=== PATIENT | female | born 1955 | race Caucasian/White ===

== ENCOUNTER 2016-08-25 18:32 | Inpatient (IN) | payer OTHER ==
[~2016-08-25] VITALS: Ht 160 cm; Wt 72.9 kg
--- NOTE | ~2016-08-25 | HP ---
PATIENT'S NAME: BECCA HOOD [facility] AGE: 61 Y [address] ROOM: [place] [address] LOCATION: GICU ADMIT DATE: 08/25/2016 History & Physical DISCHARGE DATE: FAMILY PHYSICIAN: PHYSICIAN, UNKNOWN ATTENDING PHYSICIAN: YO YAP DATE OF SERVICE: CHIEF COMPLAINT: Altered mental status. HISTORY OF PRESENT ILLNESS: A 61-year-old lady with a past medical history of hypertension and recent heavy alcohol use in the past 4 to 5 weeks observed by the family, was found to be more confused and it appeared that she had a fall which nobody witnessed, and was brought to the Emergency Department at the [facility] where a CAT scan was done, which did show some subarachnoid hemorrhage versus contusion. She was transferred here for further medical care. On my encounter, she is very drowsy, but she is alert to herself. She is following commands, opening eyes, and doing purposeful movements. On limited review of systems, the patient herself was not positive for any chest pain or shortness of breath. Recently, the patient was taken to the hospital for her excessive alcohol use, and she was prescribed a dose of Librium, which she was taking at home. Daughter denied that she did not complain of any chest pain, any shortness of breath, any headache, any fever, or any chills, but did endorse that she was having diarrhea. REVIEW OF SYSTEMS: All the systems were reviewed and were negative except what is mentioned in the HPI. SOCIAL HISTORY: The patient is a life-long smoker with heavy alcohol use. She lives by herself. Daughter moved in with her over the course of last 3 weeks when she was excessively drinking, and then later, she stopped drinking and was prescribed Librium. ALLERGIES: NO KNOWN DRUG ALLERGIES. PAST MEDICAL HISTORY: 1. Sick sinus syndrome, status post pacemaker, [place] [employer], which is MR compatible per daughter who also works for [employer]. 2. Hypertension. 3. Alcohol abuse. PATIENT'S NAME: BECCA HOOD [facility] AGE: 61 Y [address] ROOM: [place] [address] LOCATION: GICU ADMIT DATE: 08/25/2016 History & Physical DISCHARGE DATE: FAMILY PHYSICIAN: PHYSICIAN, UNKNOWN ATTENDING PHYSICIAN: YO YAP MEDICATIONS: Please see MAR. FAMILY HISTORY: Family history is negative for high blood pressure, diabetes, or strokes. PHYSICAL EXAMINATION: VITAL SIGNS: Blood pressure on arrival after putting the arterial line was 114/70, heart rate was 62, respiratory rate was 20, and afebrile. GENERAL: No acute distress. Alert and oriented x1. NEUROLOGICAL: All extremities strength was 5/5. GCS is 14/15. Purposeful movements were noted. CARDIOVASCULAR: S1 and S2. No murmurs, gallops, or rubs. Pacemaker was present. LUNGS: Clear to auscultation bilaterally. ABDOMEN: Soft, nontender, and nondistended. Bowel sounds were present. EXTREMITIES: No clubbing, cyanosis, or edema. PSYCHIATRIC: Cannot be evaluated at this point. MUSCULOSKELETAL: Abrasion and laceration were noted on the left elbow. No muscle tenderness was noted. ENDOCRINE: No lymphadenopathy or signs of cushingoid was noted. LABORATORY WORK: On arrival to our hospital, sodium of 139, potassium of 3.4, chloride of 103, anion gap of 18, calcium of 8.0, BUN of 16, creatinine of 1.0, alkaline phosphatase of 130, AST of 39, ALT of 55, and bilirubin of 1.1. Sodium was 129 on outside hospital, and the potassium was 3.4. Complete blood count was unremarkable. Lactate was 1.4. DIAGNOSTIC STUDIES: CAT scan at the outside facility showed left-sided temporal contusions versus small subarachnoid hemorrhage. ASSESSMENT: 1. Intracranial hemorrhage versus stroke. 2. Alcohol abuse and withdrawal. 3. Hypertension. 4. Hyponatremia. 5. Hypokalemia. 6. Elevated liver enzymes. 7. Acute kidney injury secondary to dehydration. 8. Recurrent falls. PLAN: PATIENT'S NAME: BECCA HOOD [facility] AGE: 61 Y [address] ROOM: [place] [address] LOCATION: [facility] ADMIT DATE: 08/25/2016 History & Physical DISCHARGE DATE: FAMILY PHYSICIAN: PHYSICIAN, UNKNOWN ATTENDING PHYSICIAN: YO YAP Admit this patient to the ICU. We did put an arterial line in this patient to get accurate blood pressures. Neurosurgical consultation has been obtained. She is getting aggressive volume resuscitation. She corrected too fast for her sodium from 129 to 139. We are going to change the fluids to D5, and start her on desmopressin as well. We are going to continue to monitor labs. At this point, Neurosurgery have recommended an MRI of the brain as well as a CT angiogram of the head and neck. They also recommended a Neurology consultation, which had been obtained. We are going to observe this lady overnight. SCDs for DVT prophylaxis. Potassium is getting replaced. MATHEW which was present at the outside hospital has resolved now after volume hydration. We are going to treat her with thiamine 100 mg IV b.i.d. as she is going to get D5 to prevent any encephalopathy. BMP q.4 hours. Clostridium difficile assay. The patient is going to be n.p.o. until more alert. Seizure precautions. We will use alcohol withdrawal protocol if the patient becomes more delirious overnight. Further management will depend on her progress in the hospital. MD KOJO LAYNE/bibiana /[id number] D: 113 T: 845 HISTORY & PHYSICAL
--- NOTE | ~2016-08-25 | CON ---
PATIENT'S NAME: BECCA HOOD [facility] AGE: 61 Y [address] ROOM: [facility] [address] [place], [place] [address] [facility]ATION[facility] ADMIT DATE: 08/25/2016 Consultation DISCHARGE DATE: FAMILY PHYSICIAN: ZHANG MAGANA ATTENDING PHYSICIAN: YO YAP DATE OF CONSULTATION: 08/26/2016 REFERRING PHYSICIAN: LAUREN LYNN MD I was asked to see this patient in Telemedicine consultation. Consultation was performed with the assistance of nurse practitioner, Halima De Leon, on 08/26/2016. Golden portions of the history and exam were repeated. I agree with the discussed assessment and plan of care. 35 minutes spent in patient care time, reviewing records, discussing the case with nurse practitioner, and meeting with family. Marti Pruitt MD Neurology Telespecialist Services MARTI PRUITT MD MNZ/modl /[id number] d: t: 08/31/16 1133, CONSULTATION REPORT
--- NOTE | ~2016-08-25 | NDGEN ---
PATIENT'S NAME: BECCA HOOD [facility] AGE: 61 Y [address] ROOM: [address] [address] LOCATION: [facility] ADMIT DATE: 08/25/2016 Neurodiagnostics DISCHARGE DATE: FAMILY PHYSICIAN: PHYSICIAN, UNKNOWN ATTENDING PHYSICIAN: YO YAP PROCEDURE: ELECTROENCEPHALOGRAM DATE OF PROCEDURE: 08/26/2016 TEST: TECH: CLINICAL DIAGNOSIS: DURATION OF EE minutes. REASON FOR EEG: Possible seizures/mental status changes. CLINICAL HISTORY: The patient is a 61-year-old female, who has history of hypertension, recent heavy alcohol use, and was found to be confused and she appears to have had a fall which nobody witnessed. EEG FINDINGS: In fact, there was very little interpretable data during this recording. In places where cortical rhythms were appreciated with continuous slow activity in between 4-6Hz was seen. CLASSIFICATION: Technically difficult, awake 10/20 scalp electrodes. IMPRESSION: This EEG is extremely limited in its interpretation due to excessive movement/EMG artifact throughout the recording. In places where cortical rhythms were appreciated, no epileptiform discharges or EEG seizures were seen. MD ZAK KU/bibiana /[id number] dtt: 09/03/16 0635 RAMON RAM MOHAN R. dtd: 08/26/16 2333
--- NOTE | ~2016-08-25 | CON ---
PATIENT'S NAME: BECCA HOOD [facility] AGE: 61 Y [address] ROOM: [place] [address] LOCATION: GPCU ADMIT DATE: 08/25/2016 Consultation DISCHARGE DATE: FAMILY PHYSICIAN: ZHANG MAGANA ATTENDING PHYSICIAN: YO YAP REFERRING PHYSICIAN: LAUREN LYNN MD REFERRING PROVIDER: Hospitalist Service. REASON FOR REFERRAL: Hypoxemia. HISTORY OF PRESENT ILLNESS: The patient is a 61-year-old woman initially admitted after a fall. She is a heavy alcohol user and apparently fell as a result of sedation from a benzodiazepine that she was prescribed. She had a small subdural hematoma and has been observed in this hospital since the . Her mental status has waxed and waned, but she has never been fully alert and interactive. She has been noted to have increasing O2 requirements today. She had received fairly large volume of fluids in the preceding days for the current situation. Chest x-ray and CT scan demonstrated bilateral patchy infiltrates in an alveolar pattern. These are consistent with either noncardiogenic pulmonary edema or patchy bilateral pneumonia. PAST MEDICAL HISTORY: Please refer to the admission history and physical exam. FAMILY HISTORY: Unobtainable. SOCIAL HISTORY: Unobtainable. REVIEW OF SYSTEMS: Unobtainable. PHYSICAL EXAMINATION: GENERAL: She is sleeping but arousable. She is confused and lethargic. ENT: Otherwise, unremarkable. CHEST: Normal contours. Mild tachypnea. LUNGS: Diminished breath sounds but relatively clear. HEART: Regular. ABDOMEN: Soft, nontender. Minimal bowel sounds. EXTREMITIES: Mild edema. PATIENT'S NAME: BECCA HOOD [facility] AGE: 61 Y [address] ROOM: [place] [address] LOCATION: GPCU ADMIT DATE: 08/25/2016 Consultation DISCHARGE DATE: FAMILY PHYSICIAN: ZHANG MAGANA ATTENDING PHYSICIAN: YO YAP ASSESSMENT: Increasing hypoxemia. CT scan suggest either noncardiogenic pulmonary edema or patchy bilateral pneumonia. PLAN: Ventilates fine for now. If she begins to retain CO2 or struggle more or develops worsening refractory hypoxemia, we will need to intubate. MD Olga DONIS /[id number] d: 08/30/16 2330 t: 09/05/16 1303, CONSULTATION REPORT
--- NOTE | ~2016-08-25 | ECHO ---
Transthoracic Echocardiography Report (TTE) Demographics Patient Name BECCA HOOD Date of Study 08/26/2016 Patient Number [id number] Visit Number [id number] Date of 1955 Room Number G6203 Accession Number [id number] Gender Female Age 61 year(s) Referring Second Rigger Sheela Plascencia RVT, Physician JUSTICE Physician Interpreting Hany Riley Digital Recruiter Physician Supervising Ordering Physician Colton Orellana MD/REGLAP Nurse Stress Quality Assurance Calibrator Conclusions Contractility Score Summary Normal Left Ventricular contractility was noted. Summary Normal LV/RV size and systolic function. The estimated left ventricular ejection fraction is 60-65%. Mild concentric left ventricular hypertrophy. Diastolic assessment reveals Grade I diastolic dysfunction. LA is mildly dilated. There is severe aortic stenosis by the Continuity Equation. The peak velocity is 4.02 m/s and the mean gradient is 43 mmHg. The ascending aorta appears mildly dilated. The maximum diameter measures 3.6 cm. Procedure Type of Study TTE procedure:2D Echocardiogram. Procedure Date Date: 08/26/2016 Start: 07:56 AM Study Location: Inpatient Portable Technical Quality: Adequate visualization Indications:CVA. Appropriate Use Criteria: 8 Patient Status: Routine Rhythm: Paced HR: 79 bpm BP: 105/59 mmHg M-Mode/2D Measurements LV Diastolic Dimension: 4.39 cm LV Systolic Dimension: 2.77 cm LV Septum Diastolic: 1.37 cm LV PW Diastolic: 1.29 cm AO Root Dimension: 2.7 cm Cardiac Output: 9.98 l/min AV Cusp Separation: 0.9 cm RV Diastolic Dimension: 3.32 cm LA volume: 30 ml LVOT: 1.9 cm RV Base: 3.26 cm LVOT VTI: 44.6 cm RV Mid: 3.07 cm LV Stroke volume: 126.39 ml TAPSE: 1.56 cm TDI-S': 13.3 cm/s Doppler Measurements AV Peak Velocity: 4.02 m/s MV Peak E-Wave: 0.56 m/s AV Peak Gradient: 64.64 mmHg MV Peak A-Wave: 0.83 m/s AV Mean Gradient: 43 mmHg MV E/A Ratio: 0.68 LVOT Peak Velocity: 1.02 m/s MV P1/2t: 71 msec TR Gradient:25.4 mmHg PV Peak Velocity: 1.03 m/s Estimated RAP:5 mmHg PV Peak Gradient: 4.24 mmHg Estimated RVSP: 30 mmHg Estimated PASP: 30.4 mmHg E' Septal Velocity: 0.05 m/s A' Lateral Velocity: 0.1 m/s E' Lateral Velocity: 0.09 m/s Findings Left Ventricle Mild concentric left ventricular hypertrophy. Diastolic assessment reveals Grade I diastolic dysfunction. Right Ventricle Normal right ventricle structure and function. Device lead noted in the right ventricle. Left Atrium LA is mildly dilated. There is no evidence of patent foramen ovale or atrial septal defect by color Doppler. Right Atrium Normal right atrial size. Device lead seen in the right atrium. Mitral Valve Mild mitral annular calcification. Aortic Valve There is severe aortic stenosis by the Continuity Equation. The peak velocity is 4.02 m/s and the mean gradient is 43 mmHg. Tricuspid Valve Normal tricuspid valve structure and function. Trivial tricuspid regurgitation by color Doppler. Pulmonic Valve Normal pulmonic valve structure and function. Pericardial Effusion No evidence of pericardial effusion. Miscellaneous The ascending aorta appears mildly dilated. The maximum diameter measures 3.6 cm. Suboptimal subcostal window to evaluate the IVC and interatrial septum. Pleural Effusion No evidence of pleural effusion. Contractility Score LV regional wall motion:(0-Non visualized 1-Normal 2-Hypokinesis 3-Akinesis 4-Dyskinesis 5-Aneurysm) Signature dtt: JUAN AREVALO dtd: 08/26/16 0756 Physician Self Edit
--- NOTE | ~2016-08-25 | CON ---
PATIENT'S NAME: BECCA HOOD [facility] AGE: 61 Y [address] ROOM: [place] [address] LOCATION: GICU ADMIT DATE: 08/25/2016 Consultation DISCHARGE DATE: FAMILY PHYSICIAN: PHYSICIAN, UNKNOWN ATTENDING PHYSICIAN: YO YAP DATE OF CONSULTATION: 08/26/2016 REFERRING PHYSICIAN: LAUREN LYNN MD TIME OF SERVICE: 1:05 p.m. CHIEF COMPLAINT: Altered mental status. HISTORY OF PRESENT ILLNESS: This is a 61-year-old female with a past medical history of hypertension and recent alcohol use in the past four to five weeks as observed by the family. She was at home detoxing using Librium, and was found to be more confused. Family was curious that she had a fall. She was brought to the Emergency Room at [place], where they did a CAT scan, which did show some subarachnoid hemorrhage versus contusion. She was transferred to [facility] for definitive care. She is lying in the bed, lethargic, and her daughter is present also. Further workup has included an MRI. Of note, her sodium was supposedly 129 at [place], but eight hours later, it was 139 here. One must question that initial sodium reading. Her daughter states she has not really complained during the detox, and not complained of any chest pain, shortness of breath, headache, fever, or chills, but did state she was having diarrhea. REVIEW OF SYSTEMS: The review of systems were completed as much as we could due to the patient's somnolent status. SOCIAL HISTORY: The patient is a life-long smoker and a heavy alcohol abuser. She does live by herself. Her daughter moved in with her over the course of the last 3 weeks when she was drinking heavily, and then also to help with the stop drinking and the Librium prescription. ALLERGIES: SHE HAS NO KNOWN DRUG ALLERGIES. PAST MEDICAL HISTORY: 1. Sick sinus syndrome, status post pacemaker. She does have a [place] PATIENT'S NAME: BECCA HOOD [facility] AGE: 61 Y [address] ROOM: [place] [address] LOCATION: GICU ADMIT DATE: 08/25/2016 Consultation DISCHARGE DATE: FAMILY PHYSICIAN: PHYSICIAN, UNKNOWN ATTENDING PHYSICIAN: YO YAP [employer] MR-compatible pacemaker. 2. Hypertension. 3. Alcohol abuse. 4. Tobaccoism. MEDICATIONS: Please see the chart for full dose and timing of medications. FAMILY HISTORY: Negative for hypertension, diabetes, or strokes. PHYSICAL EXAMINATION: GENERAL: The patient is lying in bed. She is somnolent. No alert status. She will state her name with noxious questioning. VITAL SIGNS: Per arterial line, blood pressure was 116/68, heart rate was 68, respiratory rate was 20, and she was afebrile. NEUROLOGICAL: She is moving her right side spontaneously. Her left side, she will follow commands with. Pupils are equal and reactive to light. Gag and corneal reflexes are intact. Exam is limited by the patient's somnolent status. The patient will open eyes to verbal stimulus. CARDIOVASCULAR: S1 and S2 without murmur, rub, or gallop. LUNGS: Clear to auscultation bilaterally. ABDOMEN: Soft, nontender, and nondistended. EXTREMITIES: No cyanosis or edema. HEAD: Normocephalic and atraumatic. LABORATORY WORK: On arrival to our hospital, her sodium was 139, although it was stated at 129 at [place]. DIAGNOSTIC STUDIES: CTA. On the CTA, there is no aneurysm or dissection. The neck CTA shows: 1. No stenosis at the carotid bulb or origin of the internal carotid on the right or left. 2. There is a dominant left vertebral artery with a small right vertebral artery. 3. There may be slow flow or occlusion at the superior right vertebral artery. 4. There is mild atherosclerotic plaque at the carotid bulb and origin of the internal carotid artery on the right and left, with extensive atherosclerotic plaque somewhat greater on the left. No hemodynamically significant stenosis is seen. 5. Evidence for a subarachnoid hemorrhage at the sulci of the left temporal PATIENT'S NAME: BECCA HOOD [facility] AGE: 61 Y [address] ROOM: [id number] [place], [place] [address] LOCATION: [facility] ADMIT DATE: 08/25/2016 Consultation DISCHARGE DATE: FAMILY PHYSICIAN: PHYSICIAN, UNKNOWN ATTENDING PHYSICIAN: YO YAP lobe and left sylvian fissure. The MRI states there is a small foci of high FLAIR in the sulci of the left temporal lobe and sylvian fissure on the left, likely representing small volume of subarachnoid blood. There are also a couple of areas on high T2 and FLAIR in the left frontal lobe and right posterior lobe, which could be sequelae of trauma or old brain injury. There are generalized atrophic changes and white matter small-vessel ischemic changes. There are no findings of acute ischemic infarct noted. ASSESSMENT AND PLAN: 1. Intracranial hemorrhage versus stroke. The patient presented in a somnolent state. This could be related to stroke or acute encephalopathy related to alcohol withdrawal. It is okay to utilize low-dose heparin or Lovenox in the state of this very small intracranial hemorrhage. We will monitor her neurological assessment for worsening or improvement. 2. Acute encephalopathy. We will get an EEG just to rule out seizures and monitor this encephalopathy. Of note, the patient is withdrawing from alcohol, and benzos are being utilized appropriately. 3. Hyponatremia. It is difficult to believe that sodium went from 129 to 139 in eight hours. I would favor using normal saline instead of D5 on this patient. Recommendations were called to Dr. Esqueda. The patient's daughter was at the bedside and we discussed the plan of care. She asked appropriate questions. Unfortunately, this will just take some time to recover from. We would like to thank the Hospitalist team for involving us in the plan of care. If you have any questions, please let us know. AKIL SIMON APRN FOR KARLI PRUITT MD PP/modl /[id number] d: 08/26/16 2316 t: 08/29/16 1623, CONSULTATION REPORT
--- NOTE | ~2016-08-25 | DS ---
PATIENT'S NAME: BECCA HOOD [facility] AGE: 61 Y [address] ROOM: [facility] [place] [place], [place] [address] LOCATION: GPCU ADMIT DATE: 08/25/2016 Discharge Summary DISCHARGE DATE: 09/12/2016 FAMILY PHYSICIAN: ZHANG MAGANA ATTENDING PHYSICIAN: Ryne Segura FINAL DIAGNOSES: 1. Intracranial hemorrhage and left sylvian fissure, left temporal frontal lobe. 2. Acute encephalopathy. 3. Alcohol abuse and withdrawal. 4. Clostridium difficile colitis. 5. Acute hypoxic respiratory failure. 6. Hyponatremia. 7. Hypokalemia. 8. Acute kidney injury. 9. Dysphagia. 10. Aspiration pneumonia. 11. Hypophosphatemia. 12. Metabolic acidosis. 13. Escherichia coli urinary tract infection. 14. Depression. 15. Aortic stenosis. Please see the history and physical dictated by Mejia Segura for admission. In short, she was transferred from the emergency department in [place]. She had been noticed to be confused by her family and had been drinking heavily. In the ER, a CT had been done. It showed that she had a subarachnoid hemorrhage versus contusion. LABORATORY DATA: On admission, her ABG, pH 7.38, pCO2 38, PO2 81, was on 2 L per nasal cannula. Sodium on admission was 139, did get as high as 148 and then most prior to discharge is 142. Potassium on admission was 3.4, got as low as 3.1 on the . At discharge is 4.3. CO2 on admission was 21, did drop to 20 and then got as low as 16. On the most prior to discharge . BUN on admission was 16, most prior to discharge was 15. Creatinine on admission was 1. On discharge, it was 0.9. Her alkaline phosphatase on admission was 113. AST 39, ALT 55, bilirubin was 1.1. Phosphorus on admission was less than 0.1 and it did come to 1.2 and did drop to 1.4 on August 29 and prior to discharge was 4.6. Her TSH was 3.47. ProBNP on the was 2072. Pre-albumin on August 28 was 7. White blood cell count on admission was 5.3 with a hemoglobin of 12.9, hematocrit 36.4, MCV 104.6, and platelet count 140. Band was 28. White blood cells on discharge were 4.9. Hemoglobin on admission was 12.9, did get down to 10.2 on August 28, most prior to discharge was 7.6. Platelet count on admission was 140, most prior to discharge platelet count was 261. Procalcitonin on admission was 0.3. PATIENT'S NAME: BECCA HOOD [facility] AGE: 61 Y [address] ROOM: [id number] [place], [place] [address] LOCATION: GPCU ADMIT DATE: 08/25/2016 Discharge Summary DISCHARGE DATE: 09/12/2016 FAMILY PHYSICIAN: ZHANG MAGANA ATTENDING PHYSICIAN: Ryne Segura A Urinalysis on admission showed 5-10 whites, 10 to 20 reds, few bacteria. Microbiology data, urine on the grew Klebsiella pneumoniae and Morganella morganii and Ruthie. RADIOLOGY DATA: CT scan with angio done on admission showed that the head CT note did show any aneurysm or dissection in the tejon of [place]. The neck CTA did not show any significant stenosis in the right or left carotid artery, dominant left vertebral artery with small right vertebral artery. She had mild atherosclerotic plaque in the carotid bulb in the origin of the internal carotid. MRI of the brain done on second hospital day showed small foci of high flair signal and the left temporal lobe in the sylvian fissure showed small volume subarachnoid bleed. There were small areas of flare in the left frontal and right posterior parietal thought that could be secondary to trauma. She did have atrophic changes. X-ray of the abdomen for Dobbhoff placement was adequately placed. CT scan of the head done on the showed that the subarachnoid hemorrhage was resolving. CT scan of the chest done on August 30 for acute hypoxic respiratory failure did not show cardiac enlargement, but there was no evidence of pulmonary embolism. Echocardiogram showed her EF to be 60% to 65%. She had severe aortic stenosis with a velocity of 4.02. HOSPITAL COURSE: The patient was initially admitted into the intensive care unit. She was seen and evaluated by Dr. Hardin and the patient was given IV fluid and hydration. Her electrolytes were corrected. A CT angio was done as well as the MRI, results of already which have been given. She was hyponatremic and she did receive desmopressin. She has been put on a mild sliding scale insulin. She was not significantly responsive. Initially, a C. diff was obtained because of diarrhea and returned positive. She was started on IV Flagyl because she was n.p.o. She did have significant encephalopathy and at the beginning it was very hard to assess her. We did have Speech see her and she failed her swallow study. A Dobhoff was placed. A repeat CT scan was done on the to make sure that everything intracranially was remaining stable. Nephrology did see her and did order an EGD and we put her on an aspirin a day. She did continue to have problems with aspiration at night and her tube feeds did need to be stopped. She did also have significant hypophosphatemia for which she had received IV replacement. For the aspiration pneumonia, she was put on meropenem. Because of the C. diff, once we did place a Dobbhoff, then the Flagyl was changed to orally and vancomycin was added. It was felt that she was volume overloaded. She was given albumin and Bumex. PT and OT did continue to work with her. We did continue very aggressively and replaced her potassium and her phosphorus. It was felt that she would need a 10 day course of IV antibiotics. She was transferred to telemetry. Dr. Cast was asked to see the patient. She did continue to require supplementation of both potassium and phosphorus. She did have difficulty with tolerating some of the tube feeds, so we did eventually change PATIENT'S NAME: BECCA HOOD [facility] AGE: 61 Y [address] ROOM: [id number] [place] [id number] LOCATION: GPCU ADMIT DATE: 08/25/2016 Discharge Summary DISCHARGE DATE: 09/12/2016 FAMILY PHYSICIAN: ZHANG MAGANA ATTENDING PHYSICIAN: Ryne eSgura her to [facility] 1.2. She did seem to tolerate this much better. Adjustments were made in her medications. She continued her IV meropenem. We gave her Bumex to help with the volume overload. She did have one episode of agitation on the and received Zyprexa. Because of the agitation, a CT scan of the chest was done to rule out a pulmonary embolism. It did not show any evidence of PE. She did have to go on to BiPAP for a little while. She then eventually did pass in and she was able to be weaned off the BiPAP. PT/OT did continue to work with her. She continued to receive her medications. She received Bumex to help mobilize fluid along with albumin. Her encephalopathy began to wax and wane. We were able to convert her to oral antibiotic on the . We did have to use a Flexi-Seal for the diarrhea. She continued to improve. Cognitively, her diarrhea persisted. GI was asked to see her and they did add bulk. They did not feel that there is anything else that needed to be done at this time. Her stools did gradually improve. She did complete the 14 day course of vancomycin and was started on a taper. A bed became available for her in the rehab unit and she was able to be transferred there. During the hospital stay, we did discuss with the family her alcohol consumption and that the hope is that she will be able to get some sort of treatment post discharge. We spoke with her at different times about forming a plan to be successful. She was discharged to rehab. DISCHARGE INSTRUCTIONS: Regular diet. Weightbearing as tolerated. PT/OT and speech therapy. DISCHARGE MEDICATIONS: 1. Vancomycin 250 mg 3 times daily through September 17, and starting on September 18 250 mg twice daily through September 24, and September 25 through October 01 250 mg daily, then October 02 through October 08 vancomycin 125 mg daily then stop. 2. Colestid 2 g twice daily. 3. Benefiber one packet twice daily. 4. Mycostatin applied to her bottom 3 times daily. 5. Potassium 20 mEq daily. 6. Florastor 250 mg twice daily. 7. Zoloft 50 mg daily. 8. Zocor 20 mg daily. 9. Thiamin 100 mg daily. 10. Atrovent inhaled every 4 hours as needed. 11. NicoDerm patch 7 mg, on in the morning, off at night. PROGNOSIS: Overall prognosis at discharge is fair. PATIENT'S NAME: BECCA HOOD [facility] AGE: 61 Y [address] ROOM: [id number] [place], [place] [address] [facility] AD[facility] DATE: 08/25/2016 Discharge Summary DISCHARGE DATE: 09/12/2016 FAMILY PHYSICIAN: ZHANG MAGANA ATTENDING PHYSICIAN: Ryne Segura MD LAW/modl /[id number] d: 09/13/16 0036 t: 09/17/16 1116, DISCHARGE SUMMARY
--- NOTE | ~2016-08-25 | CON ---
PATIENT'S NAME: BECCA HOOD [facility] AGE: 61 Y [address] ROOM: [place] [address] LOCATION: GICU ADMIT DATE: 08/25/2016 Consultation DISCHARGE DATE: FAMILY PHYSICIAN: PHYSICIAN, UNKNOWN ATTENDING PHYSICIAN: YO YAP DATE OF CONSULTATION: 08/25/2016 REFERRING PHYSICIAN: LAUREN LYNN MD CHIEF COMPLAINT: Confusion, left temporal subarachnoid hemorrhage, ?? left temporal stroke. HISTORY OF PRESENT ILLNESS: The patient is a 61-year-old female patient who had heavy alcohol use for about 4 to 5 weeks and went on detox program. Few days ago, she was noticed by her family to be confused. The history was obtained mainly from the family and the referring physician notes. It is unclear whether this patient had a fall sometime during the last 2 to 3 weeks. The patient was taken to [facility] where she was investigated and stabilized. She was found to be severely hypotensive. She was resuscitated with intravenous fluids. The patient was confused in [place], and a noncontrast CT head was done and that showed evidence of scattered subarachnoid hemorrhage within the left sylvian fissure, and along the left temporal convexity. It also showed effacement of the left temporal frontal sulci as well as the left insula. I was contacted and I reviewed the images. I recommended transferring the patient over, under the hospitalist team for medical management first and for further neurological investigations. I met the patient in the intensive care unit. Further history was unobtainable. Upon admission, the patient's systolic blood pressure was around 80. Hospitalist team was called urgently. The patient was started on intravenous fluids, and an arterial line has been placed. Immediately, the patient's systolic blood pressure started to improve to around 100 to 110 mmHg. REVIEW OF SYSTEMS: Unobtainable given the patient's confusion. PAST MEDICAL AND SURGICAL HISTORY: Obtained from the chart and referring physician notes. It is positive for existing pacemaker, sick sinus syndrome, hypertension, and alcohol abuse. MEDICATIONS: Listed in the patient's chart. PATIENT'S NAME: BECCA HOOD [facility] AGE: 61 Y [address] ROOM: [place] [address] LOCATION: [facility] ADMIT DATE: 08/25/2016 Consultation DISCHARGE DATE: FAMILY PHYSICIAN: PHYSICIAN, UNKNOWN ATTENDING PHYSICIAN: YO YAP ALLERGIES: LISTED IN THE PATIENT'S CHART. SOCIAL HISTORY: Unobtainable given the patient's confusion. FAMILY HISTORY: Unobtainable given the patient's confusion. PHYSICAL EXAMINATION: VITAL SIGNS: The patient's initial blood pressure was around 80 systolic. After resuscitation with 1 L of normal saline, it improved to 114/70. GENERAL: The patient is confused. She is in mild respiratory distress. HEENT: Head; atraumatic. The pupils are 3 mm and reactive. NEUROLOGIC: The patient is confused. She is oriented to herself. She opens her eyes to voice. She follows commands in all 4 extremities. No evidence of focal weakness. CARDIOVASCULAR: She has palpable pulses on the upper extremities. RESPIRATORY: She is in mild respiratory distress. MUSCULOSKELETAL: She has an abrasion on the left elbow. LYMPHATIC: No cervical lymphadenopathy. INVESTIGATIONS: 1. A noncontrast CT head done in [place], which I personally reviewed. It showed no evidence of fractures. It showed scattered subarachnoid hemorrhage in the left sylvian fissure, and within the left temporal lobe sulci. It also showed effacement of the left temporal frontal sulci and poor visualization of the mckeon-white matter differentiation suspicious for stroke. It also showed effacement of the left insular ribbon. 2. Blood work which was remarkable for hyponatremia (129, low GFR). IMPRESSION: A 61-year-old female patient, known to be a heavy alcoholic, went on detox program few days ago, is found by her family to be confused. She was seen in [place] where a noncontrast CT head showed subarachnoid hemorrhage in the left sylvian fissure, and along the left temporal lobe. It also showed poor mckeon-white matter differentiation of the left temporal frontal lobes and effacement of the left insular ribbon. Those findings are suspicious for a stroke. PLAN: 1. The patient is already admitted under the hospitalist for medical management. 2. Claims Account Manager consultation for potential deterioration of hemodynamic status and potential requirement of invasive cardiovascular monitoring PATIENT'S NAME: BECCA HOOD [facility] AGE: 61 Y [address] ROOM: [id number] [place], [place] [address] LOCATION: [facility] ADMIT DATE: 08/25/2016 Consultation DISCHARGE DATE: FAMILY PHYSICIAN: PHYSICIAN, UNKNOWN ATTENDING PHYSICIAN: YO YAP and inotropes. 3. MRI brain without contrast to assess for stroke. 4. CT angiogram of the head and neck to assess for possible intracranial aneurysms and vessel occlusion. I discussed the situation with the admitting physician and the patient's family. I described the findings of the CT scan to them. I then discussed my plan with both of them. They asked appropriate questions and those were answered to their satisfaction. It was pleasure taking care of this patient and thanks for having us involved. MD YAN MARSHALL/bibiana /[id number] CC: SAPNA [facility] [place] d: 08/26/16 2342 t: 08/27/16 1105, CONSULTATION REPORT
--- NOTE | ~2016-08-25 | CON ---
PATIENT'S NAME: BECCA HOOD [facility] AGE: 61 Y [address] ROOM: [place] [address] LOCATION: GPCU ADMIT DATE: 08/25/2016 Consultation DISCHARGE DATE: FAMILY PHYSICIAN: ZHANG MAGANA ATTENDING PHYSICIAN: YO YAP REFERRING PHYSICIAN: LAUREN LYNN MD Consult for Dr. Esqueda. This 61-year-old lady is referred for rehab evaluation, admitted on 08/25 with confusion and was found to be confused by her family. I feel she was taken to emergency room after a possible fall at the local hospice. At the local hospital, a CT scan showed subarachnoid hemorrhage on the left side. She described that she could follow instructions, but was confused. Reportedly, she has burgos drinking prior to this heavily for the last 4 weeks or so, and she denied any chest pain. No headaches. Did have some diarrhea before this all started. She is a long time smoker and drinks on a regular basis. Lives by herself. Past history of significance: 1. Sick sinus syndrome, status post pacemaker, [employer]. 2. Hypertension. 3. Alcohol abuse. 4. Possibly smoking. 5. Diabetes type 2. Now, she is alert, a little unable to orient self. She is speaking. Her speech is slurred and nasal mostly. Can move bilateral upper and lower extremities, right side is weaker, 3+ at best. Right lower extremity seems to be a little bit better, but markedly easily fatigues with effort. Vitals are stable at the present time. She has right facial weakness. Tongue and soft palate move well and symmetrical. Deep tendon reflexes are present, slightly brisk. She is on the following medications: 1. Thiamine hydrochloride. 2. Dextrose. 3. Simvastatin. 4. Sodium bicarbonate. 5. Lactinex. PATIENT'S NAME: BECCA HOOD [facility] AGE: 61 Y [address] ROOM: [place] [address] LOCATION: GPCU ADMIT DATE: 08/25/2016 Consultation DISCHARGE DATE: FAMILY PHYSICIAN: ZHANG MAGANA ATTENDING PHYSICIAN: YO YAP 6. Albuterol. 7. Glucagon. 8. Insulin aspart, mild. 9. Glucose. 10. NaCl. 11. Vancomycin. 12. Flagyl. 13. Potassium phosphate. 14. KCl. 15. Meropenem. She has already been started on PT, OT, and speech, which I will continue. I will take her to [facility] when she is stable for intensive rehabilitation for about 3-4 weeks aiming to discharge home at modified trade. Thank you for this referral. MD GIANNA CELAYA/modl /[id number] d: 08/29/16 2325 t: 08/30/16 0753, CONSULTATION REPORT
--- NOTE | ~2016-08-25 | CD ---
PATIENT'S NAME: BECCA HOOD [facility] AGE: 61 Y [address] ROOM: [id number] [place], [place] [address] LOCATION: GPCU ADMIT DATE: 08/25/2016 Chemical Dependency Report DISCHARGE DATE: FAMILY PHYSICIAN: ZHANG MAGANA ATTENDING PHYSICIAN: YO YAP DRUG AND ALCOHOL EVALUATION DEMOGRAPHICS: The patient is a 61-year-old, female from [place], [place]. PRESENTING PROBLEM: The patient stated that she did not remember why she was brought to the hospital, but later reported she was taken due to possible falling. Records indicate that the patient's daughter brought her in after she was showing some confusion, and they were concerned that she had possibly fallen. MEDICAL HISTORY: The patient denied any previous hospitalizations or any chronic or ongoing illnesses. She denied being on any prescribed medications, however, later stated that she had been put on something for depression. She denied having any unmet medical needs at this time. EDUCATION/WORK/ HISTORY: The patient reported that she was previously employed at [employer] until the store closed on September 04. Later during the consultation, the patient informed me that she had been fired from a job previous to this for alcohol- related reasons. The patient denied any history. DRUG AND ALCOHOL USE HISTORY: 1. Tobacco: The patient reported she 1st smoked cigarettes at age 21. She described her current use as typically 3-4 cigarettes per day. The patient denied any negative consequences or health problems connected to her cigarette use. 2. Alcohol: The patient reported she 1st started drinking alcohol after age 41. She reported that since that time she drinks approximately 1 drink per night. She indicated that "she typically drinks Adrián and these drinks are pretty strong." Records indicate the patient has recently been drinking alcohol heavily for approximately the past 4-5 weeks as observed by family members. Her daughter also moved in with her recently over the course of the last 3 weeks due to excessive alcohol use. Records also indicated that the patient was taken to the hospital for alcohol use and prescribed Librium in the recent past. The patient did not mention any of that information provided by her medical chart. The patient did identify that she had had no negative consequences of alcohol use until recently where she was sent home from work as they smelled alcohol on her. She also mentioned that she recently fell down and PATIENT'S NAME: BECCA HOOD [facility] AGE: 61 Y [address] ROOM: [id number] [place], [place] [address] [facility] ADMIT DATE: 08/25/2016 Chemical Dependency Report DISCHARGE DATE: FAMILY PHYSICIAN: ZHANG MAGANA ATTENDING PHYSICIAN: YO YAP believes that this was connected to her drinking as well. She stated when she fell down she had had more to drink than just her 1 drink which she takes at night to help her sleep. She indicated at that point she had had 1-2 drinks. When questioned how often she drinks more than the nightly drink before bedtime, she was unable to give a clear answer. 3. The patient denied any other substance use including prescription medications and bbyv-xrn-piecuxe medications. The patient denied any previous substance use evaluations or treatment. NEGATIVE CONSEQUENCES OF USE: The patient identified that she had recently had troubles at work due to her alcohol use. She stated that she was sent home the first time it came up and then fired the next time. She made this first sound like it was very recent, however, I later learned that this was previous to her most current place of employment. It would appear that one or more of the patient's jobs have been affected by her alcohol use. The patient denied any alcohol-related legal problems, medical problems, or mental health symptoms related to her alcohol use. The patient reported that she has tried to cut down or quit alcohol and has not been able to at this time. She identified sometimes having cravings or urges to use. The patient indicated that she has experienced blackout and memory loss due to alcohol use. She has been fired from at least 1 job due to alcohol use as well as a possible recent accident where she fell down while under the influence. The patient denies any history of withdrawal symptoms, however, later stated she may experience some withdrawal symptoms at nighttime. The patient reported that she has been able to abstain from using at most a week at a time and that this is due to not wanting the kids to see her drinking. The patient was unaware of any specific triggers of use, but stated that she primarily drinks alcohol and able to go to sleep. The patient first denied that anyone had expressed concern about her alcohol use, however, later on during the consultation discussed several children that have voiced concerns, one even giving her an ultimatum that she needs to quit or she would not see her grandchildren. LEGAL HISTORY: The patient denied any legal history related to substance use. The patient is not currently on probation, so the SSI and SRARF results and background checks are unavailable. FAMILY/SOCIAL/PEER HISTORY: The patient reported that she lives in [place] by herself, however, records indicate that a daughter has recently moved in due to her excessive alcohol use the past month. The patient reported that she has 3 adult children she identified having a close relationship with. She also mentioned having a brother and his family of 5 kids living right near her, which she also describes having positive relationship with. The patient also identified PATIENT'S NAME: BECCA HOOD [facility] AGE: 61 Y [address] ROOM: [place] [address] [facility] ADMIT DATE: 08/25/2016 Chemical Dependency Report DISCHARGE DATE: FAMILY PHYSICIAN: ZHANG MAGANA ATTENDING PHYSICIAN: YO YAP she has another brother and his who lives nearby, however, this relationship is strained according to the patient who indicates they have arguments and struggles around his alcohol consumption. The conflict with this brother was initially the only significant conflict with family or friends that the patient identified, however, later in conversation she spoke of her daughter and the ultimatum that she was given that she either stops drinking or she is not going to see her daughter or grand children any more. The patient identified her hobbies as used to be sewing, cleaning her house, and doing yard work. She identified her strength as helping friends out and talking to people. The patient identified her biggest challenge as recently avoiding people because she does not want to deal with them and answer their tough questions. The patient denied any previous psychiatric hospitalizations. She did report that she started seeing an outpatient therapist, Marina Malloy, a couple of months ago. She described this as for medication management and stated that she sees Marina 1 time per month. The patient reported a fairly recent history of depression which she then described as starting about 5 years ago. At this time, she lost both of her parents and other close people to her. She also lost a job at this point, which she attributed to depression as well. The patient denied any history of suicidal ideations or attempts. COLLATERAL INFORMATION: The doctor notes as well as nursing notes and database part one assessment were all reviewed for collateral information. The only discrepancies found were those noted in relation to specific details of her alcohol use including amount and frequency. ASAM CRITERIA: A. Acute intoxication and withdrawal. The patient appears to be at low risk in this dimension. She is not currently intoxicated and/or showing any current signs of withdrawal. B. Biomedical conditions and complications. The patient appears to be at low risk in this dimension. There are no current physical illnesses or chronic medical conditions that need to be addressed or may complicate treatment. C. Cognitive behavioral and emotional conditions. The patient appears to be at lrs-di-egfbbkrl risk in this dimension. The patient reported symptoms of depression and these may be severe enough to warrant specific mental health treatment. D. Readiness/motivation. The patient is currently at the contemplation stage of change. She did verbalize she needs to quit using alcohol and identified negative consequences leading to this realization. She is, however, in the early stages of contemplation and appears to be minimizing quite significantly, thus placing her at moderate risk in this dimension. PATIENT'S NAME: BECCA HOOD [facility] AGE: 61 Y [address] ROOM: [id number] [place], [place] [address] [facility] ADMIT DATE: 08/25/2016 Chemical Dependency Report DISCHARGE DATE: FAMILY PHYSICIAN: ZHANG MAGANA ATTENDING PHYSICIAN: YO YAP. Relapse, continued use, continued problem. The patient appears to be at moderate risk in this dimension. She does not have a high awareness for relapse triggers or coping skills to use for cravings or impulses to use. Again, the patient is in the early stages of change and at risk for continued use at this time. F. Recovery Environment.There are no dangerous family members or living situations that necessarily pose a threat to treatment engagement and success; however, this patient doestypically lives alone and does not use available resources to help her deal with her alcohol use problems, thus placing her at moderate risk in this dimension. CLINICAL IMPRESSION: The patient was not willing to complete the evaluation at first stating she was too tired. After a nurse worked with her for a little bit, she became willing to complete this consultation. She was cooperative, however, guarded in the information that she gave. The patient's affect was consistent with her mood and congruent with thought content. Her mood was depressed and tired. The patient appeared to be guarded in her answers and appeared to minimize, especially in regard to the amount and frequency of her alcohol use. The patient is currently at the contemplation stage of change. Her daughter threatened that if she keeps drinking she will not be able to see her or the grandchildren, which gave leverage to seek or accept this consultation. There were some discrepancies between the information given by this patient and that in her medical record, these were primarily around the amount and frequency of use as well as other details of her alcohol use problems. DIAGNOSIS: 303.90 (F10.20) moderate alcohol use disorder. The patient meets the criteria for moderate alcohol use disorder based on the following: Unsuccessful efforts to cut down or quit, cravings or strong urges to use, recurrent use resulting in failure to fulfill major work obligations, continuing despite recurrent interpersonal problems. TREATMENT RECOMMENDATION: The recommendation for this patient at the current time is dual outpatient treatment to address both her mental health symptoms as well as alcohol use. The patient has no history of any alcohol or substance use treatment. Related problems appear to be severe enough to warrant some level of outside support, and outpatient appears to be the most appropriate level at this time. This level of care is available and the patient is in support of this recommendation as well. PATIENT'S NAME: BECCA HOOD [facility] AGE: 61 Y [address] ROOM: [place] [address] [facility]: [facility] ADMIT DATE: 08/25/2016 Chemical Dependency Report DISCHARGE DATE: FAMILY PHYSICIAN: ZHANG MAGANA ATTENDING PHYSICIAN: YO YAP [facility], [facility] YO YAP MD PT/modl /[id number] cc: ZHANG MAGANA, Family Physician YO YAP MD, Attending Physician d: 09/09/16 0257 t: 10/01/16 1439, CHEMICAL DEPENDENCY/PSYCHOSOCIAL ASSESSMENT~
--- NOTE | ~2016-08-25 | CON ---
PATIENT'S NAME: BECCA STEVE [facility] AGE: 61 Y [address] ROOM: [address] [address] LOCATION: GPCU ADMIT DATE: 08/25/2016 Consultation DISCHARGE DATE: FAMILY PHYSICIAN: ZHANG MAGANA ATTENDING PHYSICIAN: YO YAP REFERRING PHYSICIAN: LAUREN LYNN MD REASON FOR CONSULT: Hemoccult-positive stools and diarrhea. HISTORY OF PRESENT ILLNESS: Becca Steve is a 61-year-old female with history of multiple comorbidities. The patient was recently admitted to the hospital after a fall with findings of contusion, subarachnoid hemorrhage, requiring rehabilitation, and was also on multiple antibiotics. Presently in progressive care unit and undergoing rehab with severe diarrhea in association with Hemoccult-positive stools. She was found to have C. difficile in her stools and is currently on vancomycin, previously on Flagyl. She continues to have loose watery stools. She denies any previous history of diarrhea. Denies having any previous endoscopic evaluation. No known history of inflammatory bowel disease. Her hemoglobin is relatively stable. PAST MEDICAL HISTORY: 1. Sick sinus syndrome, pacemaker. 2. Hypertension. 3. Nicotine and alcohol abuse. MEDICATIONS: Reviewed in her MAR. ALLERGIES: NONE. SOCIAL HISTORY: As noted above. PHYSICAL EXAMINATION: GENERAL: Chronically ill looking female, in no acute distress. VITAL SIGNS: Afebrile, vital signs are stable. HEENT: Reveals nonicteric sclerae. Pupils round and reactive. NECK: Supple without palpable nodes. CHEST: Clear to auscultation. HEART: S1, S2, normal. ABDOMEN: Soft and benign without palpable masses or tenderness. Bowel sounds are present. PATIENT'S NAME: BECCA STEVE [facility] AGE: 61 Y [address] ROOM: [address] [place] [id number] LOCATION: GPCU ADMIT DATE: 08/25/2016 Consultation DISCHARGE DATE: FAMILY PHYSICIAN: ZHANG MAGANA ATTENDING PHYSICIAN: YO YAP EXTREMITIES: Nonfocal. LABORATORY DATA: Reviewed revealing a hemoglobin of 13.0, white cell count of 5.8. Chemistry panel revealing BUN of 14, creatinine 0.9. Liver function tests are normal. C. difficile toxin essay as drawn on August 25, 2016 was positive. Stool Hemoccult positive as done yesterday on 09/06/2016. ASSESSMENT AND PLAN: A 61-year-old female with multiple comorbidities, findings of Clostridium difficile colitis, undergoing treatment, and ongoing diarrhea. The patient denies any previous long-standing problems with diarrhea; however, does have history of alcohol and nicotine abuse, thereby questioning if there is any pancreatic insufficiency involved here. In any case, at the present time, her onset of diarrhea was rather recent with use of antibiotic and positive Clostridium difficile toxin essay, and therefore, we will concentrate on treating this first. We will increase her vancomycin to 250 mg q.6 hours p.o. Add Colestid 2 g twice a day along with antimotility agents for comfort. Once her Clostridium difficile colitis is negative, she will require a colonoscopy, so as to rule out any underlying pathology. Further recommendations as per her clinical course. Thank you for this consult. HENRRY VALERA MD AM/bibiana /[id number] d: 09/07/16 1121 t: 09/09/16 0741, CONSULTATION REPORT
[2016-08-25] MEDS ORDERED: TRINTELLIX 20 MG PO (19:06)
[2016-08-25] MEDS ORDERED: ZOCOR20 MG PO (19:06)
[2016-08-25] MEDS ORDERED: THIAMINE HCL100 MG PO (19:07)
[2016-08-25] MEDS ORDERED: MULTI VITAMIN1 EACH PO (19:09)
[2016-08-25] MEDS ORDERED: ZOFRAN4 MG PO (19:10)
[2016-08-25] MEDS ORDERED: FAMOTIDINE10 MG PO (19:10)
[2016-08-25] MEDS ORDERED: TREXAN (REVIA)50 MG PO (19:11)
[2016-08-25] MEDS ORDERED: AMLODIPINE BESYL5 MG PO (19:13)
[2016-08-25] MEDS ORDERED: BYSTOLIC5 MG PO (19:14)
[2016-08-25] MEDS ORDERED: ZESTRIL40 MG PO (19:15)
[2016-08-25 19:41] LABS: HEMATOCRIT 36.4 % (33.0-46.0); HEMOGLOBIN 12.9 g/dL (10.0-15.0); MCH 37.1 pg (27.0-34.0); MCHC 35.4 gm/dL (32.0-36.5); MCV 104.6 fl (83.0-98.0); MPV 11.2 fl (9.4-12.4); PLATELET COUNT 140 K/uL (150-450); RBC 3.48 M/uL (3.50-5.50); RDW-CV 13.4 % (11.9-14.6); WBC 5.3 K/uL (4.0-11.0)
[2016-08-25 20:00] LABS: ALBUMIN 2.5 gm/dL (3.5-5.0); ANION GAP 18.4 (10.0-19.0); POTASSIUM 3.4 mMol/L (3.7-5.1); TOTAL BILIRUBIN 1.1 mg/dL (0.0-1.5); TOTAL PROTEIN 5.3 g/dL (6.0-8.4)
[2016-08-25 20:54] LABS: BICARBONATE 18.9 mmol/L (18.0-23.0); PCO2 32 mmHg (35-45); PO2 81 mmHg (80-90)
[2016-08-25 20:56] LABS: ABSOLUTE NEUTROPHIL CT (ANC) 2.9 K/uL (1.8-7.8); BANDED NEUTROPHIL # 1.5 K/uL (0.0-0.1); BANDED NEUTROPHILS % 28 %; LYMPHOCYTE # 1.5 K/uL (0.8-4.0); LYMPHOCYTE % 28 %; MONOCYTE # 0.7 K/uL (0.0-1.0); SEGMENTED NEUTROPHIL # 1.4 K/uL (1.8-7.8); SEGMENTED NEUTROPHIL % 26 %
[2016-08-26 02:55] LABS: ANION GAP 15.1 (10.0-19.0); CALCIUM 7.5 mg/dL (8.5-10.5); CREATININE 0.9 mg/dL (0.5-1.1); POTASSIUM 3.1 mMol/L (3.7-5.1)
[2016-08-26 03:27] LABS: BILIRUBIN URINE NEGATIVE (NEGATIVE); BLOOD URINE 150 /UL (NEGATIVE); COLOR URINE YELLOW (YELLOW); GLUCOSE URINE 100 mg/dL (NEGATIVE); KETONE URINE 50 mg/dL (NEGATIVE); LEUKOCYTES URINE 25 /UL (NEGATIVE); NITRITE URINE NEGATIVE (NEGATIVE); PROTEIN URINE 30 mg/dL (NEGATIVE); TURBIDITY URINE CLEAR (CLEAR); UROBILINOGEN URINE NORMAL (NORMAL)
[2016-08-26 03:47] LABS: BACTERIA URINE FEW (NEGATIVE); EPITHELIAL URINE 0-2 #/HPF (NEGATIVE)
--- NOTE | 2016-08-26 05:37 | NUR ---
PT ADMITTED AT 1807 WITH PIV X2 AND MA PRESENT, ON 2L NC. BANANA BAG AND NS W/ 80 MEQ KCL INFUSING. LETHARGIC ON ARRIVAL, DISORIENTED TO TIME/PLACE, UNABLE TO GIVE BIRTHDAY, SPEECH VERY GARBLED. PT MADE STATEMENTS THAT SHE IS AWARE OF HER CHANGE IN SPEECH. NIHSS ON ADMISSION WAS 9. CT ANGIO AND MRI OBTAINED THIS SHIFT, DR. LYNN REVIEWED IMAGES AND REPORT PROVIDED TO DR. JIMENEZ. ART LINE ESTABLISHED BY DR. YAP DUE TO FALSELY LOW BLOOD PRESSURES FROM CUFF. LEVOPHED AVAILABLE IF NEEDED. IVMF CHANGED TO D5W DUE TO RAPIDLY CORRECTING SODIUM LEVELS; DDAVP ALSO GIVEN. O2 WEANED TO RA THIS SHIFT. MULTIPLE LOOSE MUCOSY STOOLS; PT TESTED POSITIVE FOR C-DIFF; PLACED IN CONTACT ISOLATION PER PROTOCOL. NO COMPLAINTS OF PAIN THIS SHIFT. ADDITIONAL PIV STARTED FOR CT ANGIO. CAITIE GENAO RN
[2016-08-26 06:02] LABS: ALBUMIN 2.1 gm/dL (3.5-5.0); ANION GAP 14.2 (10.0-19.0); CALCIUM 7.7 mg/dL (8.5-10.5); CREATININE 0.9 mg/dL (0.5-1.1); POTASSIUM 3.2 mMol/L (3.7-5.1)
[2016-08-26 06:05] LABS: TOTAL BILIRUBIN 0.8 mg/dL (0.0-1.5); TOTAL PROTEIN 4.7 g/dL (6.0-8.4)
[2016-08-26 06:15] LABS: HEMOGLOBIN 11.7 g/dL (10.0-15.0); MCH 37.5 pg (27.0-34.0); MCHC 36.6 gm/dL (32.0-36.5); MCV 102.6 fl (83.0-98.0); MPV 11.2 fl (9.4-12.4); PLATELET COUNT 145 K/uL (150-450); RBC 3.12 M/uL (3.50-5.50); RDW-CV 13.4 % (11.9-14.6); WBC 5.2 K/uL (4.0-11.0)
[2016-08-26 06:56] LABS: ABSOLUTE NEUTROPHIL CT (ANC) 3.5 K/uL (1.8-7.8); BANDED NEUTROPHIL # 2.8 K/uL (0.0-0.1); BANDED NEUTROPHILS % 54 %; LYMPHOCYTE # 0.9 K/uL (0.8-4.0); LYMPHOCYTE % 17 %; MONOCYTE # 0.7 K/uL (0.0-1.0); SEGMENTED NEUTROPHIL # 0.7 K/uL (1.8-7.8); SEGMENTED NEUTROPHIL % 13 %
[2016-08-26 08:48] LABS: BICARBONATE 21.7 mmol/L (18.0-23.0); PCO2 32 mmHg (35-45); PO2 91 mmHg (80-90)
[2016-08-26 11:53] LABS: ANION GAP 13.7 (10.0-19.0); CALCIUM 7.7 mg/dL (8.5-10.5); CREATININE 0.8 mg/dL (0.5-1.1); POTASSIUM 3.7 mMol/L (3.7-5.1)
--- NOTE | 2016-08-26 14:00 | NUR ---
Introduced self and role of care management to patient's daughter. Patient lives alone in [place]. This daughter also lives in [place] with her family, she has a sister in [place] and a brother in [place]. Daughter says patient went on a recent binge and so the children confronted her and she said she wanted to detox and get treatment. Daughter says they were staying with her and she was detoxing under the direction of a physician. Daughter says she got worse and they took her to ER in [place]. She says they did not realize she had a fall. She does have [employer] insurance and they are bringing her card. Daughter had started working with [facility] while at home on options for treatment and they are to send her a list of in network facilities. Will follow.
--- NOTE | 2016-08-26 16:34 | NUR ---
VSS. Afebrile. o2 decreased to RA today with o2 sats in low-mid 90s. Patient reports less SOB during this shift. Nephrostomy and urostomy continue to have adequate UOP. Follow up: transfer
[2016-08-26 18:39] LABS: ANION GAP 12.8 (10.0-19.0); CHLORIDE 107 mMol/L (96-110); CO2 21 mMol/L (22-32); POTASSIUM 3.8 mEq/L (3.7-5.1); SODIUM 137 mEq/L (135-145)
[2016-08-26 18:40] LABS: ALBUMIN 2.2 gm/dL (3.5-5.0); BLOOD UREA NITROGEN 8 mg/dL (6-24); CALCIUM 7.6 mg/dL (8.5-10.5); CREATININE 0.7 mg/dL (0.5-1.1); MAGNESIUM 1.9 mg/dL (1.8-2.6)
[2016-08-26 18:41] LABS: PHOSPHORUS < 0.1 mg/dL (2.5-4.9)
[2016-08-27 00:51] LABS: HEMOGLOBIN 11.4 g/dL (10.0-15.0); MCH 37.1 pg (27.0-34.0); MCHC 35.6 gm/dL (32.0-36.5); MCV 104.2 fl (83.0-98.0); MPV 10.9 fl (9.4-12.4); PLATELET COUNT 153 K/uL (150-450); RBC 3.07 M/uL (3.50-5.50); WBC 6.2 K/uL (4.0-11.0)
[2016-08-27 01:34] LABS: ABSOLUTE NEUTROPHIL CT (ANC) 4.5 K/uL (1.8-7.8); BANDED NEUTROPHIL # 2.4 K/uL (0.0-0.1); BANDED NEUTROPHILS % 39 %; LYMPHOCYTE # 0.9 K/uL (0.8-4.0); LYMPHOCYTE % 14 %; MONOCYTE # 0.4 K/uL (0.0-1.0); SEGMENTED NEUTROPHIL # 2.1 K/uL (1.8-7.8); SEGMENTED NEUTROPHIL % 33 %
--- NOTE | 2016-08-27 01:44 | NUR ---
PATIENT IS ALERT AND ORIENTED TO PERSON. FOLLOWS SOME COMMANDS. INCOHERENT SPEECH. LETHARGIC. PACEMAKER. ROOM AIR-PATIENT WAS UNABLE TO CLEAR SECRETIONS-WEAK COUGH. EXPIRATORY WHEEZING. NPO-R) NARE DOBHOFF. ARTERIAL LINE TO THE LEFT RADIAL. PIV'S TO THE LEFT HAND-INFUSING NS AT 75, L) POST. FA, AND R) POST FA-SL'D. VITALS- HR 79. R-24 ROOM AIR 94%, 145/112 (A)-108/56. ICU CHARGE ASSESSED PATIENT-CALLED HOSPITALIST FOR DEEP SUCTIONING AND PATIENT WAS STILL UNABLE TO CLEAR SECRETIONS. IT WAS FOUND THAT THE PATIENT WOULD BEST BE MONITORED ON ICU. TRANSFERRED AT 2130- GAVE REPORT TO DORIS Phelps
--- NOTE | 2016-08-27 05:08 | NUR ---
Significant Event: Pt has been lathargic throughout this shift. During my third assessment pt was able to open eyes to voice, and followed commands to squeeze hand and move toes. Levo gtt was run for a short period of time this shift to keep maps greater than 65. Pt has had difficulty clearing secretions this shift and has required frequent oral and nasal suctioning. Phos level was low and KPHOS has been running this shift. Pt has had 3 mod BM's this shift. Macias cath in place with low urine output. [address] and a L) radial art line. Follow up: Phos level to be drawn 1 hour after infusion complete.
--- NOTE | 2016-08-27 11:18 | NUR ---
A - PT SCREENED D/T MST AND CONSULT FOR TUBE FEEDING. AMS, INCOHERENT SPEECH, ?STROKE. DEFERRED NFPE. Etoh WITHDRAWAL. POSITIVE C-DIFF. HT: 160.02 CM, WT: 171#, BMI: 30.3, IBW: 52 KG, %IBW: 149% LABS: GLU 142, ALB 2.2, PO4 1.2. MEDS: LACTINEX, MILD SSI. DIET: ST REC NPO 08/26. PLACING DOBHOFF TODAY FOR EN. EST NEEDS: [id number] KCAL (25-30 KCAL/KG IBW), 52-62 GRAMS PROTEIN (1-1.2 GRAMS/KG IBW), FLUID NEEDS: 1ML/KCAL D - INADEQUATE ORAL INTAKE RELATED TO DIFFICULTY SWALLOWING SECONDARY TO AMS EVIDENCED BY ST EVAL AND CONSULT FOR ENTERAL NUTRITION. I - RECOMMEND OSMOLITE 1.0 AT 55ML/HR WITH 45ML WATER FLUSHES EVERY 4 HR TO PROVIDE 1399 KCAL, 58 GRAMS PROTEIN, 1111ML FREE WATER. START AT 15ML/HR, INCREASE 15ML/HR EVERY 4-8 HR TILL GOAL RATE. M/E - GOAL: PT WILL TOLERATE ENTERAL NUTRITION IN 2-4 DAYS.
[2016-08-27 12:22] LABS: ALBUMIN 2.6 gm/dL (3.5-5.0); BLOOD UREA NITROGEN 5 mg/dL (6-24); CHLORIDE 112 mMol/L (96-110); CREATININE 0.6 mg/dL (0.5-1.1); MAGNESIUM 1.6 mg/dL (1.8-2.6); POTASSIUM 3.6 mMol/L (3.7-5.1); SODIUM 142 mMol/L (135-145)
[2016-08-27 12:23] LABS: ANION GAP 16.6 (10.0-19.0); CALCIUM 7.2 mg/dL (8.5-10.5); CO2 17 mMol/L (22-32); PHOSPHORUS 1.9 mg/dL (2.5-4.9)
[2016-08-27 18:58] LABS: ALBUMIN 3.2 gm/dL (3.5-5.0); BLOOD UREA NITROGEN 4 mg/dL (6-24); CHLORIDE 111 mMol/L (96-110); CREATININE 0.6 mg/dL (0.5-1.1); MAGNESIUM 2.3 mg/dL (1.8-2.6); PHOSPHORUS 3.7 mg/dL (2.5-4.9); POTASSIUM 3.9 mMol/L (3.7-5.1); SODIUM 142 mMol/L (135-145)
[2016-08-27 19:00] LABS: ANION GAP 18.9 (10.0-19.0); CALCIUM 6.9 mg/dL (8.5-10.5); CO2 16 mMol/L (22-32)
--- NOTE | 2016-08-27 19:28 | NUR ---
Patient following commands. Improvement in awakeness throughout shift. Phos corrected and now within normal parameters. 1L of 5% Albumin given this shift. SBP 90-110s. MAPS mid-upper 70s. Continues on RA with o2 sats in mid to low 90s. Dobhoff started today to begin tubefeeding. ABX changed to PO form. Still continues to have loose stools. Follow up: continue to monitor neuro status and correct labs.
[2016-08-28 05:44] LABS: ALK PHOS 87 IU/L (33-138); ALT 39 IU/L (12-78); AST 22 IU/L (10-40); BLOOD UREA NITROGEN 5 mg/dL (6-24); CREATININE 0.7 mg/dL (0.5-1.1); PHOSPHORUS 2.9 mg/dL (2.5-4.9); POTASSIUM 3.7 mMol/L (3.7-5.1); SODIUM 145 mMol/L (135-145); TOTAL BILIRUBIN 0.7 mg/dL (0.0-1.5); TOTAL PROTEIN 5.3 g/dL (6.0-8.4)
[2016-08-28 05:45] LABS: ANION GAP 15.7 (10.0-19.0); CHLORIDE 116 mMol/L (96-110); CO2 17 mMol/L (22-32)
--- NOTE | 2016-08-28 05:47 | NUR ---
Significant Event: NO SIGNIFICANT NEURO CHANGES DURING SHIFT. PATIENT DROWSY. FOLLOWS COMMANDS. MOVES ALL EXTREMITIES. OPENS EYES TO VOICE. HR'S 80'S-90'S. SBP 110'S-130'S. AFEBRILE. VSS. O2 ON RA 88-90, PLACED ON 2L NC SINCE O2 SATS GREATER THAN 93%. NT SUCTIONING X2. MA TO DD WITH ADEQ UOP. FLEXISEAL PLACED DURING SHIFT, 100ML OUT. R) WRIST IV STARTED. L) HAND DC'D. NS AT 100ML/HR. Follow up: DC'D ARTLINE, DC'D Q1HR NEURO CHECKS.
[2016-08-28 06:06] LABS: HEMATOCRIT 29.8 % (33.0-46.0); HEMOGLOBIN 10.2 g/dL (10.0-15.0); MCH 36.8 pg (27.0-34.0); MCHC 34.2 gm/dL (32.0-36.5); MCV 107.6 fl (83.0-98.0); MPV 11.1 fl (9.4-12.4); PLATELET COUNT 171 K/uL (150-450); RBC 2.77 M/uL (3.50-5.50); RDW-CV 15.4 % (11.9-14.6); WBC 5.8 K/uL (4.0-11.0)
[2016-08-28 06:53] LABS: ABSOLUTE NEUTROPHIL CT (ANC) 4.5 K/uL (1.8-7.8); BANDED NEUTROPHIL # 1.4 K/uL (0.0-0.1); BANDED NEUTROPHILS % 24 %; LYMPHOCYTE # 0.7 K/uL (0.8-4.0); LYMPHOCYTE % 12 %; MONOCYTE # 0.6 K/uL (0.0-1.0); SEGMENTED NEUTROPHIL # 3.1 K/uL (1.8-7.8); SEGMENTED NEUTROPHIL % 54 %
--- NOTE | 2016-08-28 11:15 | NUR ---
NUTRITION FOLLOW-UP. C-DIFF POSITIVE, LOOSE STOOL. FLEXISEAL PLACED. PCU STATUS. TOLERATING TF AT 25ML/HR, OSMOLITE 1.0. IF FIBER-BASED TF FORMULA IS DESIRED, RECOMMEND JEVITY 1.5 AT 40ML/HR WITH 30ML/HR WATER FLUSHES IF NO IV FLUID. ADVANCE RATE PER MD ORDER.
--- NOTE | 2016-08-28 17:18 | NUR ---
SIGNIFICANT EVENT: PATIENT ALERT, ORIENTED CONSISTENTLY TO PERSON. AT TIMES TO PLACE AND TIME. OPENS EYES SPONT AND TO VOICE. PUPILS EQUAL AND REACTIVE. PATIENT NODS NO APPROPRIATELY. NODS NO TO NUMBNESS, TINGLING, OR PAIN. NO NON VERBAL S/S PAIN. RESTLESS AT TIMES. PATIENT MOVES ALL 4 EXTREMITIES SPONTANEOUSLY AND TO COMMANDS, EQUAL STRENGTH THROUGHOUT. SLIGHT R) FACIAL DROOP NOTED. PATIENT UP TO CHAIR X2 THIS SHIFT. AMBULATED IN ROOM X2, HEAVY 2 ASSIST. PATIENT'S SPEECH IS MUMMBLED. PATIENT HAS BEEN SR, TACHY AT TIMES. PACEMAKER PRESENT. HR 90-110S. PULSES PALPABLE THROUGHOUT. BP STABLE, SBP >90, MAP>65. EDEMA PRESENT. AFEBRILE. PATIENT ON 2 L NASAL CANNULA, L) NASAL TRUMPET INTACT. SATS >90%. BOWEL SOUNDS PRESENT, FLEXISEAL IN R/T CDIFF. LIQUID OUTPUT. 80 ML OUTPUT. NO NEW SKIN ISSUES NOTED. REPOSITIONED. EVERY 2 HOURS. NO COMPLICATIONS WITH PIV X2. NS AT 100 ML/HR. PCU STATUS. L) ART LINE D/C'D NO COMPLICATIONS. FOLLOW UP: CONTINUE TO MONITOR
[2016-08-29 00:36] LABS: BLOOD UREA NITROGEN 3 mg/dL (6-24); CO2 21 mMol/L (22-32); CREATININE 0.7 mg/dL (0.5-1.1); POTASSIUM 3.4 mMol/L (3.7-5.1)
[2016-08-29 00:37] LABS: ANION GAP 12.4 (10.0-19.0); CALCIUM 7.2 mg/dL (8.5-10.5); CHLORIDE 117 mMol/L (96-110); SODIUM 147 mMol/L (135-145)
--- NOTE | 2016-08-29 04:41 | NUR ---
Significant Event: Pt has been drowsy thoughout this shift. Opens eyes to voice. Will follow commands to squeeze hands and moves feet and legs. Speech is minimal and very garbled. Blood pressures have been stable. On 4L of O2 via NC. Pt did have a large amount of secretions both orally and nasal. Tube feedings were turned off due to the large amount of secretions, and a Chest Xray was obtained. Flexi seal in place with good drainage. Macias cath in place with good urine output. [address] Follow up: CT scan today. Dietary consult place to adjust the tubefeed
[2016-08-29 04:43] LABS: HEMATOCRIT 32.6 % (33.0-46.0); HEMOGLOBIN 10.8 g/dL (10.0-15.0); MCH 36.4 pg (27.0-34.0); MCHC 33.1 gm/dL (32.0-36.5); MCV 109.8 fl (83.0-98.0); MPV 10.8 fl (9.4-12.4); PLATELET COUNT 150 K/uL (150-450); RBC 2.97 M/uL (3.50-5.50); RDW-CV 15.9 % (11.9-14.6); WBC 6.3 K/uL (4.0-11.0)
[2016-08-29 04:59] LABS: ALBUMIN 2.6 gm/dL (3.5-5.0); BLOOD UREA NITROGEN 2 mg/dL (6-24); CO2 21 mMol/L (22-32); CREATININE 0.6 mg/dL (0.5-1.1); MAGNESIUM 1.9 mg/dL (1.8-2.6); POTASSIUM 3.5 mMol/L (3.7-5.1)
[2016-08-29 05:00] LABS: ANION GAP 11.5 (10.0-19.0); CALCIUM 7.3 mg/dL (8.5-10.5); CHLORIDE 118 mMol/L (96-110); PHOSPHORUS 1.4 mg/dL (2.5-4.9); SODIUM 147 mMol/L (135-145)
[2016-08-29 05:18] LABS: ABSOLUTE NEUTROPHIL CT (ANC) 5.2 K/uL (1.8-7.8); BANDED NEUTROPHIL # 1.8 K/uL (0.0-0.1); BANDED NEUTROPHILS % 28 %; LYMPHOCYTE # 0.9 K/uL (0.8-4.0); LYMPHOCYTE % 15 %; MONOCYTE # 0.1 K/uL (0.0-1.0); SEGMENTED NEUTROPHIL # 3.5 K/uL (1.8-7.8); SEGMENTED NEUTROPHIL % 55 %
--- NOTE | 2016-08-29 11:04 | NUR ---
A - Nutrition follow-up and consult Re: Adjust TF d/t possible aspiration PCU status. Mumbled, not awake enough still. C-diff +ve, flexiseal intact Labs: Na 147, K+ 3.5, Glu 115, Bun 2, Alb 2.6, PO4 1.4, Pre-alb 7 Meds: Lactinex, Vit B1 Diet: TF via Dobhoff w/ Osmolite 1.0 at 55ml/hr. TF turned off this morning due to possible aspiration per shift report. Est Needs: 6631-7025 kcal, 52-62 grams protein, fluid needs: 1ml/kcal D - Inadequate oral intake related to not safe for oral diet at this time d/t mental status as evidenced by need for enteral nutrition. I - Recommend trial Jevity 1.5 at 40ml/hr. Start at 10ml/hr x4-8 hr, increase 10ml/hr every 4-8 hr till goal rate. Elevated Na noted. Recommend 30ml/hr water flushes if no IV fluid. M/E - Goal: Patient will be able to tolerate enteral nutrition and meet >75% of needs in 2-4 days.
[2016-08-29 12:12] LABS: BLOOD UREA NITROGEN 2 mg/dL (6-24); CALCIUM 7.7 mg/dL (8.5-10.5); CO2 19 mMol/L (22-32); CREATININE 0.7 mg/dL (0.5-1.1); POTASSIUM 4.2 mMol/L (3.7-5.1)
[2016-08-29 12:15] LABS: ANION GAP 16.2 (10.0-19.0); CHLORIDE 117 mMol/L (96-110); SODIUM 148 mMol/L (135-145)
--- NOTE | 2016-08-29 13:20 | NUR ---
Significant Event: PT alert, is drowsy at times, arouses with minimal stimuli. VSS, O2 at 2L per nasal cannula. Dobhoff patent to R)nare, nasal trumpet patent to L)nare. Spontaneous movement in all extremities, follows commands at times. Opens eyes, speech is mumbled/garbled. Tube feeding stopped last night. Pivot transfer with 2 assist, gait belt and walker. Macias patent. Flexiseal fell out this AM, has remained out, 3 moderate loose bm's this shift. Seda area red, aloe applied. Bilateral peripheral IV's patent. Potassium phosphate and potassium chloride given IV this morning. Follow up:
--- NOTE | 2016-08-29 17:26 | NUR ---
Pt alert occasionally. Pt responds to verbal stimuli. opens eyes but quickly falls back asleep. does have some left sided facial droop. unable to assess strength as pt would not follow commands-occasionally does just would not do it for me. k phos iv started will run over 7 hours. gave kcl via dobhoff. vanco via dobhoff. all meds via dobhoff. strict NPO dt severe aspiration risk. on 2L nc. nasal trumpet in l nare. tee in place with 2550 out post 2mg iv bumex. do have an order to replace flexiseal if needed- isolation for cdiff. bottom is very red and excoriated. subarrach is resolving per ct plan: con't with pt/ot
[2016-08-30 04:57] LABS: HEMATOCRIT 34.8 % (33.0-46.0); HEMOGLOBIN 11.8 g/dL (10.0-15.0); MCH 36.6 pg (27.0-34.0); MCHC 33.9 gm/dL (32.0-36.5); MCV 108.1 fl (83.0-98.0); MPV 10.3 fl (9.4-12.4); PLATELET COUNT 150 K/uL (150-450); RBC 3.22 M/uL (3.50-5.50); WBC 7.5 K/uL (4.0-11.0)
[2016-08-30 05:18] LABS: ALBUMIN 2.7 gm/dL (3.5-5.0); ANION GAP 13.4 (10.0-19.0); CALCIUM 7.6 mg/dL (8.5-10.5); CREATININE 0.8 mg/dL (0.5-1.1); MAGNESIUM 1.7 mg/dL (1.8-2.6); PHOSPHORUS 2.5 mg/dL (2.5-4.9); POTASSIUM 4.4 mMol/L (3.7-5.1)
--- NOTE | 2016-08-30 05:36 | NUR ---
Significant Event: Drowsy. Patient responds to verbal stimuli but quickly goes back to sleep. Restless this shift. Zyprexa given x1 with relief. HR 80s-100s. SBP 110s. Respirations are tachy. Left sided facial droop continues. Stroke scale completed per Neuro trauma battery recharger. Occasionally follows commands. Speech very garbled, muffled, and slurred. Hard to understand patient. Dobhoff continues to right nare. Jevity running at 10ml/hr for most of the shift. Increased to 20ml/hr per orders as patient is tolerating well. Nasal trumpet to left nare. On 2-3L per NC. Macias patent with 3750ml uop. Flexiseal placed with beginning of shift. 300ml stool plus leaks. Left forearm PIV with antibiotics. Right wrist PIV saline locked. Turned Q2 and PRN. Periarea very excoriated. Small spots opening up around thighs. Isolation continues for C-Diff. Follow up: Will continue to monitor per plan of care.
[2016-08-30 06:16] LABS: LYMPHOCYTE % 13 %; MONOCYTE # 0.4 K/uL (0.0-1.0); SEGMENTED NEUTROPHIL % 80 %
--- NOTE | 2016-08-30 07:40 | NUR ---
REMOVED NASAL TRUMPET AFTER NT SUCTIONING, LARGE THICK YELLOW PLUG AT THE END. WILL PUT NEW TRUMPET IN IF NEEDED
[2016-08-30 12:56] LABS: BICARBONATE 27.7 mmol/L (18.0-23.0); LACTATE 1.91 mEq/L (0.50-1.60); PCO2 35 mmHg (35-45); PO2 90 mmHg (80-90)
--- NOTE | 2016-08-30 17:44 | NUR ---
Took over cares at 1400, patient is alert and confused. She mumbles but occassionally can be clear speaking. She has a dobhoff that is clamped right now. Was running at 50ml/hr with a flush Q4 hours. Flexiseal has 350ml out, does leak around the tube. IV in R) AC is saline locked. Had an art line in R) wrist, wrapped in coban. Macias has 950 out. Not sure what she had in for intake, due to her tube feeding being shut off with prior nurse and no documentation. Her buttocks and groin are excoriated, aloe vesta applied. Accuchecks are Q4 hours with no coverage given. She had a chest xray this AM and a CT of the chest this afternoon. Echo showed aortic stenosis. CT results not in yet. BiPap started around 1745 with settings at 12/8.
[2016-08-30 23:18] LABS: ANION GAP 14.3 (10.0-19.0); CREATININE 0.8 mg/dL (0.5-1.1); MAGNESIUM 1.6 mg/dL (1.8-2.6); POTASSIUM 4.3 mMol/L (3.7-5.1)
[2016-08-31 05:20] LABS: BICARBONATE 31.2 mmol/L (18.0-23.0); PCO2 41 mmHg (35-45); PO2 69 mmHg (80-90)
--- NOTE | 2016-08-31 06:27 | NUR ---
Started shift with pt not alert. As shift went on pt became more alert and responsive. follows commands and even making coherent sentences. Asked for a sprite this am. Cont on highflow nc at 40% fio2. restarted tube feed at 20ml/hr with 50ml q4 hour flushes. 2 new ivs started by flight one in each wrist/forearm. Pt was having runs of vtach off and on with longest run 15beats. MD was present for majority of runs. pt was stable through them. gave 1 gm mag and started on iv push lopresser with parameters. accu checks q4- no coverage needed. oob to chair for a couple of hours- 2 person assist with fww and gaitbelt- heavy 2a. tee with 2200 out post bumex. flexi seal with 150 out + what she leaked around it. bottom is extremely excoriated and raw. Tele neuro needs to be contacted today. Dr kitchen saw last night for evaluation. no new orders from him
[2016-08-31 07:30] LABS: BASOPHIL % 0.4 %; EOSINOPHIL % 0.5 %; HEMATOCRIT 35.7 % (33.0-46.0); HEMOGLOBIN 12.4 g/dL (10.0-15.0); IMMATURE GRANULOCYTE # 0.1 K/uL (0.0-0.3); IMMATURE GRANULOCYTE % 0.7 %; LYMPHOCYTE # 1.1 K/uL (0.8-4.0); MCH 37.1 pg (27.0-34.0); MCHC 34.7 gm/dL (32.0-36.5); MCV 106.9 fl (83.0-98.0); MONOCYTE # 0.7 K/uL (0.0-1.0); MONOCYTE % 10.1 %; MPV 10.7 fl (9.4-12.4); NEUTROPHIL # (ANC) 5.4 K/uL (1.8-7.8); NEUTROPHIL % 73.3 %; NRBC % 0 /100WBC (0-0.00); PLATELET COUNT 148 K/uL (150-450); RBC 3.34 M/uL (3.50-5.50); RDW-CV 15.9 % (11.9-14.6); WBC 7.3 K/uL (4.0-11.0)
[2016-08-31 07:44] LABS: ANION GAP 12.2 (10.0-19.0); CREATININE 0.8 mg/dL (0.5-1.1); POTASSIUM 4.2 mMol/L (3.7-5.1)
--- NOTE | 2016-08-31 17:23 | NUR ---
Significant Event: PT HAS HAD A GOOD DAY, MORE ALERT AND ORIENTED, TALKING BETTER, KNOWS WHERE SHE IS AND WHY. DOESN'T REMEMBER THAT SHE CAN'T GET OUT OF BED BY HERSELF YET, BUT IS COOPERATIVE WHEN SHE IS REMINDED WHY SHE'S HERE AND THT SHE CAN'T WALK ALONE YET. TF RUNNING WITHOUT PROBLEMS. UP IN RECLINER 3 HRS THIS AM PER P.T., BACK TO BED WITH LIFT. Follow up: MONITOR
[2016-09-01 04:01] LABS: HEMATOCRIT 33.7 % (33.0-46.0); HEMOGLOBIN 11.4 g/dL (10.0-15.0); MCH 36.8 pg (27.0-34.0); MCHC 33.8 gm/dL (32.0-36.5); MCV 108.7 fl (83.0-98.0); MPV 11.2 fl (9.4-12.4); PLATELET COUNT 138 K/uL (150-450); RDW-CV 15.9 % (11.9-14.6); WBC 6.1 K/uL (4.0-11.0)
[2016-09-01 04:18] LABS: CALCIUM 8.1 mg/dL (8.5-10.5); CREATININE 0.8 mg/dL (0.5-1.1)
[2016-09-01 04:19] LABS: ANION GAP 11.1 (10.0-19.0); POTASSIUM 4.1 mMol/L (3.7-5.1)
--- NOTE | 2016-09-01 05:05 | NUR ---
Pt had a good night. slept hard. remains on 4L nc. did have her down to 2L at one point in time. 2pa with fww/gb to chair. flexiseal in place. 0 output- is some in the tube. tee in plac 550 out. iv bilat forarms/wrist areas- sl other than abx. tube feed remains at 20 ml/hr and 50 ml q4 hour flushes. she would like to eat and drink- possible get a st consult today now that she is more alert. bottom is still very red and excoriated.
[2016-09-01 05:56] LABS: ABSOLUTE NEUTROPHIL CT (ANC) 4.2 K/uL (1.8-7.8); BANDED NEUTROPHIL # 0.2 K/uL (0.0-0.1); BANDED NEUTROPHILS % 4 %; LYMPHOCYTE # 1.2 K/uL (0.8-4.0); LYMPHOCYTE % 19 %; MONOCYTE # 0.7 K/uL (0.0-1.0); SEGMENTED NEUTROPHIL % 65 %
--- NOTE | 2016-09-01 12:15 | NUR ---
A - NUTRITION F/U. PT MORE ALERT, WANTS TO EAT; RN TO GET ST CONSULT FOR SWALLOW. GLU 134, BUN/LECTURER IN MARKETING 10/0.8. PT W/ 1+ EDEMA TO BUE, 2+ BLE. DIET: JEVITY 1.5 AT 20 ML/HR. D - AT RISK W/ INADEQUATE ORAL INTAKE R/T DIFFICULTY SWALLOWING AEB NEED FOR DOBHOFF. I - GOAL: TO MEET NEEDS VIA EN IF FAILS SWALLOW EXAM. M/E - 1) CONT TO ADVANCE TF TO GOAL RATE OF 40 ML/HR. 2) IF DIET ORDERED AFTER ST SEES, WILL OFFER APPOPRIATE SUPPLEMENT. F/U IN 2-4 DAYS.
--- NOTE | 2016-09-01 19:03 | NUR ---
Significant Event: A/Ox3. Forgetful at times. Visual hallucinations at times. SBP- 80-120s. MAPS >60. P-70-90s. Afebrile. Currelty weaned down to 3L NC. Dyspnic with exertion. Albumin 5% in 500ml given x1 for hypotension. Bumex 1mg IVP x1. Heavy 2A/pivot to full lift. Diet ADVANCED TO regular with nectar thick liquids. Macais had 825ml/shift and flexaseal had 400ml out of liquid stool. Accuchecks Q4HR with no coverage needed. Patient denies pain.
[2016-09-02 04:21] LABS: ALBUMIN 2.7 gm/dL (3.5-5.0); ANION GAP 10.6 (10.0-19.0); CALCIUM 8.4 mg/dL (8.5-10.5); CREATININE 0.8 mg/dL (0.5-1.1); MAGNESIUM 1.9 mg/dL (1.8-2.6); PHOSPHORUS 2.7 mg/dL (2.5-4.9); POTASSIUM 3.6 mMol/L (3.7-5.1)
--- NOTE | 2016-09-02 04:59 | NUR ---
Pt alert and orientated off and on. occasional hallucinations and off the wall statements. as the night went on she became more alert and more orientated. She pushed out her flexiseal 2x. the second round it was left out at her request. she had 1 stool in the commode and has been incontinent x1. 2pa assist with fww. tee remains in place. r nare dobhoff in place with jevity 1.5 sofia at 20 ml/hr and 50ml free water flushes q4. meds through dobhoff as pt was very sleepy and could not swallow safely at time they were administered. she had 1 fsbs that needed coverage at 211 but she refused insulin. next fsbs she was 144. pt ate her pears as well as a pudding cup and is sipping on oj this am. bottom is still red and excoriated. sensicare prn. nystatin cream to groins per orders. plan: con't current plan of care
--- NOTE | 2016-09-02 11:42 | NUR ---
NUTRITION F/U: REGULAR DIET W/NECTAR THICK LIQUIDS STARTED 09/01. PT PULLED DOBHOFF OUT THIS AM. WILL START ENSURE PUDDING BID AND MAGIC CUP QD TO PROVIDE ADDITIONAL NUTRIENTS.
--- NOTE | 2016-09-02 13:00 | NUR ---
Talked to [facility] on and they do not have a room at this time. She says we can talk again on and see if they have available room. Will follow.
--- NOTE | 2016-09-02 17:57 | NUR ---
Significant Event: ALERT AND ORIENTED AT TIMES. OCCASIONAL HALLUCINATIONS AND UNCOMPREHENSIBLE SPEECH. HAS BEEN IMPULSIVE, TRYING TO GET OUT OF BED MOST OF THE DAY. VSS ON 2L 02 PER NC. DID HAVE ONE RUN OF VTACH, 10 BEATS. ASYPMTOMATIC. CDIFF POSITIVE. BMX4 TODAY. EXCORIATED BOTTOM, SENSICARE AND NYSTATIN APPLIED. USES BEDSIDE COMMODE, 2 ASSIST. DID HAVE A R)NARE DOBHOFF RUNNING TUBE FEED, PT PULLED IT OUT TRYING TO GET OUT OF BED. TOLERATING PO FINE, DOBHOFF LEFT OUT. MA IN PLACE. R)HAND IV, L)HAND IV BOTH WERE FINE THIS AM, LEAKING WHEN TRIED TO GIVE AFTERNOON ANTIBIOTIC. BOTH DC'D. NEW IV TO R)FA. ACCUCHECKS DC'D. Follow up:CONTINUE WITH PLAN OF CARE
[2016-09-03 04:03] LABS: ALBUMIN 2.4 gm/dL (3.5-5.0); ANION GAP 10.6 (10.0-19.0); BLOOD UREA NITROGEN 9 mg/dL (6-24); CALCIUM 8.2 mg/dL (8.5-10.5); CHLORIDE 106 mMol/L (96-110); CO2 31 mMol/L (22-32); CREATININE 0.7 mg/dL (0.5-1.1); MAGNESIUM 1.8 mg/dL (1.8-2.6); PHOSPHORUS 3.4 mg/dL (2.5-4.9); POTASSIUM 3.6 mMol/L (3.7-5.1); SODIUM 144 mMol/L (135-145)
--- NOTE | 2016-09-03 05:19 | NUR ---
Significant Event: Patient alert, oriented to person. Does know place and times at times. Makes confused statements. Forgetful. Impulsive. Hi-lo bed with alarms at all times. VSS on 2L oxygen. Macias patent with 950 urine output. Flexiseal replaced as patient had 5 stools this shift and skin is excoriated and painful. Pleasant and cooperative with cares. Follow up: continue to monitor
--- NOTE | 2016-09-03 09:01 | NUR ---
A - NUTRITION F/U. K+ 3.6, GLU 104, BUN/RECTANGULAR TANK COOPER 9/0.7, ALB 2.4. PT W/ 1+ EDEMA T/O. DIET: REGULAR W/ NECTAR LIQUIDS. OFFERED ENSURE PUDDING BID AND MAGIC CUP QD. TOLERATING ORAL DIET PER SHIFT SUMMARY, NO INTAKE DATA. D - AT RISK W/ DIFFICULTY SWALLOWING R/T ALTERED MENTAL STATUS AEB NEED FOR ALTERED CONSISTENCY DIET. I - GOAL: 50% OR BETTER INTAKE BY NEXT REVIEW. M/E - WILL CONT TO MONITOR ORAL INTAKE AND F/U IN 2-3 DAYS.
--- NOTE | 2016-09-03 14:49 | NUR ---
I did leave a vm with Belen with [facility] will touch base on .
--- NOTE | 2016-09-03 15:36 | NUR ---
Significant Event: pt up to bathroom with therapy. Pt strained out flexiseal at 9, charge reinserted. Gilberto has dark yellow urine, low outpt. 02 2liters still. Pt alert but gets sleepy at times. Very alert this afternoon, talks about her horses and riding with nurse. Pt son came today. Pt anxious, got out of bed twice with therapy. Pt feeds self pretty well, told to go slow. Speech came and saw pt this am. Pt wants cigarette , told. Meds have been crushed in pudding. Follow up:
--- NOTE | 2016-09-04 04:21 | NUR ---
Pt off and on lethargic but arousable this shift. multiple loose bms this shift. bottom still red/raw/excoriated. nystatin applied to groins, sensicare to bottom. tee remains in place with 200 out. no intake tonight other than pills in pudding. Pt is awake now and asking for water/drinking. midline to aikn- flushes well but blood return is questionable. it is very positional. vss on 2L nc, afebrile. attempted to wean o2 but when pt sleeps her o2 dips into the mid 80's on RA. did not get oob this shift. Plan: con't current plan of care. She would like a shower today.
[2016-09-04 04:36] LABS: CALCIUM 8.2 mg/dL (8.5-10.5); CREATININE 0.8 mg/dL (0.5-1.1)
[2016-09-04 04:45] LABS: ANION GAP 11.1 (10.0-19.0); POTASSIUM 4.1 mMol/L (3.7-5.1)
--- NOTE | 2016-09-04 12:35 | NUR ---
I spoke with [facility] and will talk more tomorrow and look at benefits and wanting the stools to get better. So could be ready weekend or early part of next week. WIll continue to follow.
--- NOTE | 2016-09-04 15:24 | NUR ---
I did speak with daughter Negin on the phone and she was wondering how everything was going on the insurance end. I explained I am now following for Michelle and Negin is on vacation but from talking with her the insurance has been notified but have not requested clinical but pt is not ready yet for the next level of care and from my understanding we are hoping to get her to acute rehab her and Negin stated yes that is the plan. Negin stated her sister will be here tomorrow Jeannie and can touch base with her but Negin [phone] number. I did tell her I have been in contact with [facility] with rehab and hoping maybe the weekend or early next week will be able to get her over pending insurance approval.
--- NOTE | 2016-09-04 17:19 | NUR ---
Significant Event: A/O x3, forgetful at times. Cooperative with cares; impulsive x1 today setting bed alarm off. VSS, SBPs 110-170s, HRs 90-100s, oxygen at 1 liter. No c/o pain. Macias patent with 300 ml of dk yellow/tea colored urine out. 6 mod/large incontinent stools this shift. Recieved 20 mEq of oral potassium today for a level of 4.1. Initial dose of zoloft et questran given. Up with assist of 1 et gait belt to chair et bathroom. Follow up:
--- NOTE | 2016-09-05 04:31 | NUR ---
Significant Event: Pt A&Ox3, but forgetful. Will one time say the date right, but won't know where she is at; another time it will be the opposite. VS stable, BP's 120's-160's, decreased O2 to RA. Impulsive throughout night; however, did not try to get up, just climb out of bed. Bottom and thighs still very reddened and sore. Feces still gritty, but smaller amounts. Macias patent with 250ml out. Urine still remains dark emilee. No c/o pain on shift. [place] thickened liquids. Pills whole in pudding. Likes ice water, if possible. PIV midline BLANE, LI. Follow up: Continue plan of care.
--- NOTE | 2016-09-05 12:39 | NUR ---
Introduced self and role of care management to pt. She is somewhat confused but Negin's good friend Debi was present. I explained hoping to get her to acute rehab once her stooling is better. I then left a vm with Belen IRBY.
--- NOTE | 2016-09-05 14:51 | NUR ---
A-NUTRITION F/U CHEST XRAY THIS AFTERNOON; PT OUT OF ROOM LABS: NA 146, K+ 4.1, GLU 105, BUN 10, CAPACITOR PACK PRESS OPERATOR 0.8 MEDS: K-TAB, ZOLOFT, QUESTRAN DIET RX: REGULAR. PT UPGRADED FROM NECTAR THICK LIQUIDS TO THIN LIQUIDS ENSURE PUDDING BID AND MAGIC CUP QD. PO INTAEK SINCE LAST F/U HAS BEEN REFUSALS-100%; AVG IS 65% EST NUTR NEEDS: 2138-3115 KCALS AND 52-62 GM PROTEIN D-AT NUTRITION RISK W/RECENT INADEQUATE ORAL INTAKE R/T DIFF. SWALLOWING SECONDARY TO ALTERED LOC AEB INTAKE RECORDS, WT LOSS. I-1)CHANGE ENSURE PUDDING FROM BID TO QD 2)ADD ENSURE ENLIVE QD AT BRK M/E-GOAL: PO INTAKE >/=50% FOR DURATION OF ADMIT 1)F/U PO INTAKE, SUPPLEMENT TOLERANCE, WT, AND POC IN 3-5 DAYS 2)ASSIST NEEDED
--- NOTE | 2016-09-05 16:57 | NUR ---
Significant Event: A/O x3, forgetful at times; cooperative with cares. VSS, SBPs 100-120s, HRs 60-90s, on room air. No c/o pain. Macias patent with 200 ml of dk yellow/tea colored urine out this shift. Continues to have multiple loose stools, 10 this shift. Up with assist of 1, gait belt et walker to chair et bathroom; PT/OT working with patient. Plan is for patient to possibly go to [facility] next week depending on the status of her stools. Follow up: ANGELO latif ordered; STACIE aware et therapist will be over to do, unsure of when
--- NOTE | 2016-09-05 18:58 | NUR ---
Day et cook chili nurses were just finishing up report et were getting ready to do bedside rounding. Patient set bed alarm off; day nurse went to room et discovered patient on the floor on her knees at the edge of the bed like she was praying. When asked where she was going patient stated to the bathroom. Nurses assisted the patient with standing et back into bed. Patient stated that she didn't hurt anywhere et didn't hit her head. Dr. Arita notified at 1831; no new orders recieved. Misyt, daughter, notified at 1834.
--- NOTE | 2016-09-06 04:50 | NUR ---
Significant Event: Pt A&Ox3, forgetful. VS stable, on 2L O2. Pt fell at shift change last night. Did not hit head. Neuro remained stable throughout assessments. On high/low bed. [place] thick liquids, pills whole in pudding/applesauce. Can feed herself. In iso for C. diff. Has had multiple loose stools throughout shift (10). Pt will state that she has to go to the bathroom. Macias with very low UO, dark emilee colored. Does turn very well in bed by herself. Bottom very reddened and sore, Sensi-care to periarea. Up x1 assist w/FWW and gaitbelt. Does need lots of prompts. Follow up: Continue post-fall assessments. Continue plan of care.
[2016-09-06 11:54] LABS: BASOPHIL % 0.7 %; EOSINOPHIL # 0.1 K/uL (0.0-0.5); EOSINOPHIL % 1.7 %; HEMATOCRIT 39.7 % (33.0-46.0); IMMATURE GRANULOCYTE % 0.2 %; LYMPHOCYTE # 1.4 K/uL (0.8-4.0); LYMPHOCYTE % 24.4 %; MCH 36.1 pg (27.0-34.0); MCHC 32.7 gm/dL (32.0-36.5); MCV 110.3 fl (83.0-98.0); MONOCYTE # 0.5 K/uL (0.0-1.0); MONOCYTE % 7.9 %; MPV 10.9 fl (9.4-12.4); NEUTROPHIL # (ANC) 3.8 K/uL (1.8-7.8); NEUTROPHIL % 65.1 %; NRBC % 0 /100WBC (0-0.00); RDW-CV 14.5 % (11.9-14.6); WBC 5.8 K/uL (4.0-11.0)
[2016-09-06 11:59] LABS: PLATELET COUNT 247 K/uL (150-450)
[2016-09-06 12:12] LABS: ALBUMIN 2.7 gm/dL (3.5-5.0); ANION GAP 11.2 (10.0-19.0); CALCIUM 8.8 mg/dL (8.5-10.5); CREATININE 0.9 mg/dL (0.5-1.1); POTASSIUM 4.2 mMol/L (3.7-5.1); TOTAL PROTEIN 6.4 g/dL (6.0-8.4)
[2016-09-06 12:14] LABS: TOTAL BILIRUBIN 0.5 mg/dL (0.0-1.5)
--- NOTE | 2016-09-06 18:56 | NUR ---
PATIENT CONTINUES TO HAVE LOOSE STOOLS. PATIENT HAS LOW UOP PER MA, NIGHT NURSE REPORTS THAT DR AWARE. GAVIN, SATS 94% ON RA. POS HEMATEST, GI CONSULTED.
--- NOTE | 2016-09-07 06:54 | NUR ---
Significant Event: PT A&Ox3 but forgetful. Stools are still frequent and seeping. Ok-area is red throughout. Applied sensicare to ok-area. Follow up: Continue monitoring for skin breakdown.
--- NOTE | 2016-09-07 16:53 | NUR ---
PATIENT HAD FEWER STOOLS THIS SHIFT, INCREASED MEDICATIONS FOR DIARRHEA. VSS, RA. UP WITH 1 ASSIST AND GAIT BELT, WALKER. UP TO CHAIR. TABS ALARM AND BED ALARM. CONTINUES TO BE FORGETFUL AND DOES NOT CALL FOR ASSIST ALL TIMES.
--- NOTE | 2016-09-08 02:38 | NUR ---
Significant Event: PATIENT IS ALERT AND ORIENTED X3. FORGETFUL AT TIMES. USES CALL LIGHT APPROPRIATELY BUT DOES FORGET TO WAIT FOR STAFF ASSISTANCE. HI/LO BED IN PLACE. PATIENT MOVES SLOWLY AND RESPONDS SLOWLY BUT APPROPRIATELY. VSS. ON 2L O2 PER NC. IN CONTACT PRECAUTIONS FOR C.DIFF. MINIMAL STOOLS DURING NIGHT. IMMODIUM WAS ADMINISTERED AT HS. NO COMPLAINTS OF PAIN. LEFT UPPER ARM MIDLINE. ORDER WRITTEN TO DRAW LABS FROM THIS. UA DONE THIS A.M. ORDERED. Follow up:
[2016-09-08 05:19] LABS: BASOPHIL % 0.8 %; EOSINOPHIL # 0.1 K/uL (0.0-0.5); HEMATOCRIT 35.3 % (33.0-46.0); HEMOGLOBIN 11.6 g/dL (10.0-15.0); IMMATURE GRANULOCYTE % 0.4 %; LYMPHOCYTE # 1.5 K/uL (0.8-4.0); MCH 35.7 pg (27.0-34.0); MCHC 32.9 gm/dL (32.0-36.5); MCV 108.6 fl (83.0-98.0); MONOCYTE # 0.5 K/uL (0.0-1.0); MONOCYTE % 9.9 %; MPV 10.8 fl (9.4-12.4); NEUTROPHIL # (ANC) 2.8 K/uL (1.8-7.8); NEUTROPHIL % 55.9 %; NRBC % 0 /100WBC (0-0.00); PLATELET COUNT 261 K/uL (150-450); RBC 3.25 M/uL (3.50-5.50); WBC 4.9 K/uL (4.0-11.0)
[2016-09-08 05:31] LABS: ALBUMIN 2.5 gm/dL (3.5-5.0); ANION GAP 12.3 (10.0-19.0); BLOOD UREA NITROGEN 15 mg/dL (6-24); CALCIUM 8.4 mg/dL (8.5-10.5); CHLORIDE 112 mMol/L (96-110); CO2 22 mMol/L (22-32); CREATININE 0.9 mg/dL (0.5-1.1); PHOSPHORUS 4.6 mg/dL (2.5-4.9); POTASSIUM 4.3 mMol/L (3.7-5.1); SODIUM 142 mMol/L (135-145)
[2016-09-08 07:33] LABS: BILIRUBIN URINE NEGATIVE (NEGATIVE); BLOOD URINE 250 /UL (NEGATIVE); COLOR URINE BROWN (YELLOW); GLUCOSE URINE NEGATIVE (NEGATIVE); KETONE URINE NEGATIVE (NEGATIVE); LEUKOCYTES URINE 500 /UL (NEGATIVE); NITRITE URINE NEGATIVE (NEGATIVE); PROTEIN URINE 100 mg/dL (NEGATIVE); TURBIDITY URINE 3+ (CLEAR); UROBILINOGEN URINE NORMAL (NORMAL)
[2016-09-08 07:44] LABS: RBC URINE PACKED FIELD #/HPF (NEGATIVE); WBC URINE PACKED FIELD #/HPF (NEGATIVE)
[2016-09-08 07:45] LABS: BACTERIA URINE MANY (NEGATIVE); CRYSTALS URINE CALCIUM OXALATE (NEGATIVE); EPITHELIAL URINE 0-2 #/HPF (NEGATIVE); MUCUS URINE 1+ (NEGATIVE)
--- NOTE | 2016-09-08 14:57 | NUR ---
I spoke with Dr SUSANA Arita today and also update Laura. She thinks she is a good candidate just worried about her stools being contained so will eval and let me know. WIll continue to follow.
--- NOTE | 2016-09-08 15:02 | NUR ---
A-NUTRITION F/U (+)C-DIFF; STOOLING IMPROVED SLIGHTLY. WT DOWN ~6 KG SINCE ADMIT. LABS: NA 142, K+ 4.3, GLU 112, BUN 15, CHEF GERMAN 0.9, ALB 2.5, CRP <0.29 MEDS: BENEFIBER, FLORASTOR, IMODIUM, COLESTID, VANCOMYCIN, BACTRIM DIET RX: REGULAR. ENSURE ENLIVE QD, ENSURE PUDDING QD, AND MAGIC CUP QD. PO INTAKE REF-100%; AVG IS 57%. VISITED W/PT RE: SUPPLEMENTS. PT STATES THAT SHE LIKES THEM ALL, ESPECIALLY THE ENSURE ENLIVE. SHE WOULD LIKE TO RECEIVE ANOTHER ENSURE ENLIVE. EST NUTR NEEDS: [id number] KCALS AND 52-62 GM PROTEIN D-AT NUTRITION RISK W/INADEQUATE ORAL INTAKE R/T ALTERED APPETITE SECONDARY TO ALTERED GI FXN AEB WT LOSS, INTAKE RECORDS, PT REPORT I-1)CONTINUE W/CURRENT SUPPLEMENTS 2)ADD ENSURE ENLIVE QD AT PM SNACK M/E-GOAL: PO INTAKE >/=50% FOR DURATION OF ADMIT 1)F/U PO INTAKE, SUPPLEMENT, WT, GI, AND POC IN 3-5 DAYS 2)ASSIST NEEDED
--- NOTE | 2016-09-08 15:07 | NUR ---
I did call and spoke with Negin and yes still planning acute rehab. I did discuss senior living but not really wanting this more rehab and explained just wanting the stools more controlled and she understands. I did update her on her moms insurance and outpocket costs. She states she recently lost her job but her insurance is coming out monthly and is thru the [employer]. I did ask about Medicaid and she states pt has too much for money in terms of fpc and money her parents left her but I did ask about disability and gave her Michaela's number to call to help with this. I also encouraged looking into POA as well. She states the ultimate plan is to get her home and stronger and either inpatient or outpt alcohol treatment because prior they were doing intervention at home with doctor supervision. WIll continue to follow.
--- NOTE | 2016-09-08 16:16 | NUR ---
Significant Event: A/OX3, VSS ON ROOM AIR. PT. GETS UP 1 ASSIST WITH GAIT BELT/WALKER TO BATHROOM. SLEPT ON/OFF THROUGHOUT SHIFT. NO COMPLAINTS OF PAIN. SLIV TO LEFT UPPER ARM. PT. REMAINS IN ISOLATION FOR C-DIFF, HAD 3 SMALL BM'S TODAY, CAN BE INCONT. AT TIMES. WAITING ON [facility]IR[facility] PLACEMENT. UA WAS +, STARTED ON BACTRIM, WAITING ON URINE CULTURE RESULTS. MA INTACT WITH 190mL UOP. PT. NEEDS ENCOURAGED TO DRINK MORE. LADY FROM [facility] CAME TODAY TO TALK ABOUT CD, RECOMMENDED OUTPATIENT THERAPY. Follow up: CONTINUE WITH POC.
--- NOTE | 2016-09-09 04:07 | NUR ---
Significant events: Pt drowsy at beginning of shift, more alert as shift progressed. Oriented but needing lots of cueing during tasks. Up 1PA. On RA-2L/NC. Macias in place, 250mL out. BM x4, 1 of them completely incontinent. No complaints of pain. SBP 90-100's. Slept well this shift. Follow up: awaiting GIRP placement.
--- NOTE | 2016-09-09 15:24 | NUR ---
I spoke with Belen and she will start working on the precert for acute rehab.
--- NOTE | 2016-09-09 16:37 | NUR ---
Significant Event: Pt alert and oriented x3. Forgetful at times, needs cueing when performing tasks. VVS on RA. Denies pain. Up x1 assist with walker and gaitbelt. Contact isolation for c-diff. SLIV to left upper arm, flushes well with no blood return. Incontinent of stool x6 this shift. Macias DCd, bactrim DCd. Follow up: Awaiting GIRP placement. Continue plan of care.
--- NOTE | 2016-09-10 05:13 | NUR ---
Significant Event: Patient alert and oriented x3. Forgetful at times. Flat affect. SBP 90s-120s. All other vital signs stable. On RA. Midline to left upper arm saline locked. Up with 1 assist, gaitbelt, and walker. Patient lost footing this shift while getting back into bed. Fell back into bed. Patient denies any pain. Has ambulated well since. Inconitnent and continent of stools x6 this shift. Good uop. Calm and cooperative with all cares. Follow up: GIRP placement soon. Will continue to monitor per plan of care.
--- NOTE | 2016-09-10 12:54 | NUR ---
I spoke with Belen earlier today and will work on the insurance precert. I then got a call back and per Belen and the insurance will talk on and hoping the stools will be better and able to participate with therapy? I explained she is and she is continent now and also her stools are soft. I did update Dr Esqueda.
--- NOTE | 2016-09-10 17:39 | NUR ---
Significant Event: patient alert and oriented x3, forgetful at times. denied pain when asked. ambulates to bathroom and up to chair with 1 assist, walker/gait belt. had 4 bm's this shift, 3 continent soft bm's, and 1 incontinent (mushy) bm this afternoon. SBP 99-126, HR 80-90. remains in contact isolation for c-diff. Follow up: awaiting GIRP placement, possibly Thursday.
--- NOTE | 2016-09-11 07:56 | NUR ---
Significant Event: Patient alert and oriented x3. Forgetful at times. Flat affect. Vital signs stable. On RA. Midline to left upper arm continues saline locked. Up with 1 assist, walker, and gaitbelt. No complaints of pain this shift. BM x3. Good uop. Changed to MSU status. Slept most of the shift. Calm and cooperative with all cares. Follow up: Transfer to [facility] soon
--- NOTE | 2016-09-11 10:49 | NUR ---
0900 Call to Belen to see if they had made a decision about Estefani coming to [facility] or not and if her insurance would approve her to go. Belen says that insurance did approve for her to come to them and they would be able to accept her tomorrow, 09/12/16 at 0900. Let her know that we would plan on this. Packet started, orders printed, no ID Screen needed. I stopped into Kapil' room, introduced myself and let her know that I was covering for Suyapa today. Told her that [facility] would accept her tomorrow if she was in agreement with going to them. She says that she will go and she is happy to be going. No questions, needs or concerns at this time. Left a sticky note on the chart re:[facility] accepting tomorrow at 0900. Also shared this with RUBEN Mireles and called to let her know as well. CM to continue to follow and assist. Plan [facility] tomorrow at 0900.
--- NOTE | 2016-09-11 14:59 | NUR ---
A - NUTRITION FOLLOW-UP C-DIFF +VE. POSSIBLE TX TO [facility] THURSDAY. DO NOTICE 11# WT LOSS SINCE ADMIT ON 08/25. LABS: GLU 112, ALB 2.5 MEDS: NO NEW MEDS DIET: REGULAR W/ ENSURE ENLIVE BID; ENSURE PUDDING 1X/DAY; MAGIC CUP 1X/DAY. LIKES ALL SCHEDULED ORAL SUPPLEMENTS PER PT. INTAKE 33% X8 MEALS, TAKES ORAL SUPPLEMENT 100% X2 NOTED. HAD 50% OF LUNCH TODAY, REPORTED APPETITE IS IMPROVING. EST NEEDS: [id number] KCAL, 52-62 GRAMS PROTEIN, FLUID NEEDS: 1ML/KCAL D - INADEQUATE ORAL INTAKE RELATED TO ALTERED APPETITE EVIDENCED BY PO 33% X8 MEALS AND WT LOSS. I - CONTINUE W/ CURRENT SCHEDULED ORAL SUPPLEMENTS. M/E - GOAL: PT WILL BE ABLE TO TOLERATE >50% OF MEALS AND AT LEAST TWO ORAL SUPPLEMENTS PER DAY IN 4-6 DAYS.
--- NOTE | 2016-09-11 16:07 | NUR ---
Significant Event: A/O 3. COOPERATIVE WITH CARES. AFEBRILE. HR SR IN 60-70'S. FAIR APPETITE. TO/FROM BR. 3-4 FORMED MUSHING BROWN STOOLS. IMODIUM GIVEN X 2. POWER GLIDE REMOVED, RT. UPPER ANT. ARM. SBP 95-118. CONT. ON ORAL LIQUID VANCO. Follow up: PT. IS MED-SURG STATUS. TO GO TO [facility] AT 0900 IN A.M.
--- NOTE | 2016-09-12 04:15 | NUR ---
Significant Event: A/0 X 3, ABMULATES 1 ASSIST WITH WALKER/GAIT-BELT. ALL VSS ON RA. DENIED PAIN, NO PAIN MEDS GIVEN. HAS BEEN DROWSY AND SLEPT MOST OF THE SHIFT. WILL GO TO [facility] AT 0900. HAVE ALREADY GIVEN REPORT TO NURSE. Follow up:
--- NOTE | 2016-09-12 09:15 | NUR ---
TRANSFER NOTE: PT. A/O X 3. STANDBY ASSIST, GAIT BELT, WALKER, [place] SOCKS. DENIES PAIN. SHOWERED AND PLACED IN W/CHAIR TO GO TO REHAB. OUT OF ISOLATION. NO STOOLS REAL ESTATE PROCESSOR OR DAY SHIFT TODAY. STOOLS ARE NOW FORMED, MUSHY BROWN. REGULAR DIET: FAIR APPETITE. SATS 93% ON ROOM AIR. NO RESP. DISTRESS. AFEBRILE. TAKES ORAL MEDS WITHOUT DIFFICULTY. CONT. PLAN OF CARES AT REHAB UN[facility].
== END 2016-09-12 09:35 | DRG 64 ==
LOC: GICU 18:32 → GPCU 18:32 → GICU 08-26 18:31 → GPCU 08-29 14:10
PROVIDERS: Family Medicine; Internal Medicine; ADMIT Internal Medicine
PROC: B246ZZZ Ultrasonography of Right and Left Heart (ICD-10-PCS; principal; 2016-08-26)
DX: I61.9 Nontraumatic intracerebral hemorrhage, unspecified (principal); E43 Unspecified severe protein-calorie malnutrition; J96.01 Acute respiratory failure with hypoxia; J69.0 Pneumonitis due to inhalation of food and vomit; G93.41 Metabolic encephalopathy; I50.31 Acute diastolic (congestive) heart failure; A04.7 Enterocolitis due to Clostridium difficile; E87.1 Hypo-osmolality and hyponatremia; E87.2 Acidosis; F10.239 Alcohol dependence with withdrawal, unspecified; N17.9 Acute kidney failure, unspecified; N39.0 Urinary tract infection, site not specified; E83.39 Other disorders of phosphorus metabolism; B96.20 Unspecified Escherichia coli [E. coli] as the cause of diseases classified elsewhere; E86.1 Hypovolemia; E87.6 Hypokalemia; F32.9 Major depressive disorder, single episode, unspecified; I11.0 Hypertensive heart disease with heart failure; I35.0 Nonrheumatic aortic (valve) stenosis; I62.9 Nontraumatic intracranial hemorrhage, unspecified; R29.6 Repeated falls; Z95.0 Presence of cardiac pacemaker
CPT/HCPCS: C1751; C9113; J1940; J2060; J2185; J2597; J3370; J3411; J3475; J3480; J7030; J7040; J7050; J7060; J7120; P9045; Q9967

== ENCOUNTER 2016-09-12 09:45 | Inpatient (IN) | payer OTHER ==
[~2016-09-12] VITALS: Ht 160 cm; Wt 72.7 kg
--- NOTE | ~2016-09-12 | CON ---
PATIENT'S NAME: BECCA HOOD [facility] AGE: 61 Y [address] ROOM: [address] [place], [place] [address] LOCATION: [facility] ADMIT DATE: 09/12/2016 Consultation DISCHARGE DATE: FAMILY PHYSICIAN: ZHANG MAGANA ATTENDING PHYSICIAN: Milo Cast DATE OF CONSULTATION: 09/16/2016 REFERRING PHYSICIAN: YO YAP MD REASON FOR CONSULTATION: Recurring C difficile colitis. HISTORY OF PRESENT ILLNESS: This is a pleasant, 61-year-old female who was originally admitted to [facility] on 08/25/2016 with intracranial hemorrhage and left sylvian fissure in the left temporofrontal lobe. The patient, at this time, also had acute encephalopathy secondary to alcohol use and also developed E coli with urinary tract infection. The patient was placed on antibiotics and subsequently began having diarrhea. C diff was confirmed on 08/25/2016. The patient does recall having diarrhea over the last year, on and off though. Denies any complete workup in regard to this. The patient states that she was using antidiarrheals over the counter. She also has accompanied abdominal cramping and pain that will mostly relieve after having a bowel movement. After a positive C diff, the patient was placed on vancomycin orally and has been on this since 08/25/2016. We were asked to see in consultation as the patient continues having diarrhea with some mild abdominal cramping. The patient, over the past week, has increased her stools to 20+ per day. The patient denies any boubacar blood in the stool. She denies any history of colonoscopy. She also denies any known history of tested C diff. The patient, at the time of my examination, shows no chest pain, chest pressure, shortness of breath, fever, or chills. She does state that her appetite is good, though complains of significant diarrhea postprandial. It appears the patient previously had been initially placed on Flagyl and most recently has been on p.o. vancomycin for her C difficile colitis with no relief. PAST MEDICAL HISTORY: History of alcohol use; lifelong smoker; past history of sick sinus syndrome, status post pacemaker; hypertension; C difficile colitis confirmed on 08/25/2016; history of acute kidney injury; metabolic acidosis; depression; aortic stenosis; and E coli of the urinary tract. PAST SURGICAL HISTORY: Denies any history of colonoscopy or upper endoscopy. SOCIAL HISTORY: PATIENT'S NAME: BECCA HOOD [facility] AGE: 61 Y [address] ROOM: [address] [place], [place] [address] LOCATION: [facility] ADMIT DATE: 09/12/2016 Consultation DISCHARGE DATE: FAMILY PHYSICIAN: ZHANG MAGANA ATTENDING PHYSICIAN: Milo Cast The patient has a long-standing history of alcohol abuse as well as a lifelong smoker. She denies any illicit drug use. FAMILY HISTORY: The patient denies any known gastrointestinal diseases to her knowledge. ALLERGIES: PENICILLINS. CURRENT MEDICATIONS: Please refer to the medication administration record. REVIEW OF SYSTEMS: All point review of systems was completed, all were negative except for those identified in the History of Present Illness. PHYSICAL EXAMINATION: GENERAL: A pleasant, 61-year-old female who appears to be in no acute distress. VITAL SIGNS: Temperature 98.3, pulse of 106, respirations of 20, blood pressure 114/79, and oxygen saturation is 96% on room air. SKIN: [place], warm, and dry. No jaundice. HEENT: Head is normocephalic and atraumatic. Pupils are equal, round, and reactive to light. Sclerae are clear, nonicteric. Oral mucosa is pink and moist. NECK: Soft and supple. CARDIOVASCULAR: Regular. Normal S1 and S2. RESPIRATORY: Respirations even and unlabored. Lungs clear to auscultation. ABDOMEN: Soft, round, mildly tender throughout. No rebound, rigidity, or guarding noted. Bowel sounds are positive x4 quadrants. MUSCULOSKELETAL: No muscle weakness or atrophy. EXTREMITIES: No edema. NEUROLOGIC: Grossly nonfocal. LABORATORY AND DIAGNOSTIC DATA: Most recent laboratory obtained on 09/13/2016 showed a white blood cell count of 4.1, hemoglobin of 11.7, hematocrit of 35.4, and platelets of 306. Chemistry panel includes a glucose of 131, BUN of 8, creatinine 0.7, sodium 142, potassium of 4.6, chloride of 108, and CO2 of 25. Liver function tests are within normal limits. ASSESSMENT AND PLAN: Again, this is a very pleasant, 61-year-old female who was admitted with intracranial hemorrhage and left sylvian fissure as well as acute alcohol intoxication. The patient currently is residing on our inpatient rehab since PATIENT'S NAME: BECCA HOOD [facility] AGE: 61 Y [address] ROOM: [address] [place], [place] [address] LOCATION: [facility] ADMIT DATE: 09/12/2016 Consultation DISCHARGE DATE: FAMILY PHYSICIAN: ZHANG MAGANA ATTENDING PHYSICIAN: Milo Cast her admission on 08/25/2016. We were asked to see in consultation for continued diarrhea. The patient did have a positive C difficile stool testing on 08/25/2016. She initially was placed on Flagyl and then changed to p.o. vancomycin. In the past week, the patient's stool frequency has increased to 20+ per day. At this time, we will discontinue her p.o. vancomycin and place the patient on Dificid 200 mg twice daily. I will also add Questran for bile sequestering agent twice a day. This was discussed with the patient, and she verbalizes understanding and hopeful relief of her symptoms. Further recommendations to be given over the course of the patient's improvement. Thank you for this consult. CHARLI HOBSON APRN FOR MD MARY SANDOVAL/inesl /[id number] d: 09/17/16 1043 t: 09/22/161917, CONSULTATION REPORT
--- NOTE | ~2016-09-12 | CON ---
PATIENT'S NAME: BECCA STEVE [facility] AGE: 61 Y [address] ROOM: [address] [place], [place] [address] LOCATION: [facility] ADMIT DATE: 09/12/2016 Consultation DISCHARGE DATE: 09/27/2016 FAMILY PHYSICIAN: ZHANG MAGANA ATTENDING PHYSICIAN: Milo Kincaid REFERRING PHYSICIAN: Ryne Segura MD TEAM MEMBERS REPORTING: Dr. Kincaid; Belen Garcia, director of social services; inpatient rehab nursing staff; Montserrat Augustine, PT; Bella Ward, PT; Yamileth Roberto, OT; Tiffany Ann, Speech Therapy; Jenifer Koehler, therapeutic rec; and Sister Arielle Gonzalez, Pastoral Care. CURRENT STATUS: Becca Steve is a 61-year-old woman admitted to our inpatient rehab unit after a fall with a head bleed. The patient had been detoxing from alcohol and had fallen prior to the detox had started. No surgery was performed. She also has a history of C. difficile and continues to have loose stooling. She is incontinent of bowel and bladder at times. Takes Tylenol every 4 hours. She is on a regular diet. Stooling does appear to be improving. She takes Ensure twice a day, Magic cup and Ensure pudding every day. Prealbumin is 25. She can complete all of her transfers independently. She can walk 200 feet with a front-wheeled walker at standby. Stairs have not been done yet. Her Reardon balance test was 45/56. She has met 4/9 long-term PT goals. The patient can dress her upper and lower body at standby; grooming and bathing, standby; toilet and shower transfers, mod I; and toileting, mod I. She has met 5/13 long-term OT goals. Comprehension, language, and expression are at mod I. Memory, mod I; problem solving, standby. DISCHARGE PLAN: The patient is receiving 3 hours of PT, OT, and speech Thursday through Thursday. The patient has daily rehab, nursing, and physiatry involvement as well as therapeutic recreational services. The patient has shown functional improvement and is progressing. Please see her plan of care for specific goals. Plan is for the patient to discharge on September 27, 2016. The patient will go to her daughter's house in [place], [place]. BELEN GARCIA FOR MILO KINCAID MD TD/modl /[id number] d: 10/07/16 0016 t: 10/20/16 1129, CONSULTATION REPORT
--- NOTE | ~2016-09-12 | HP ---
PATIENT'S NAME: BECCA HOOD [facility] AGE: 61 Y [address] ROOM: [address] [address] LOCATION: [facility] ADMIT DATE: 09/12/2016 History & Physical DISCHARGE DATE: FAMILY PHYSICIAN: ZHANG MAGANA ATTENDING PHYSICIAN: Carri Kincaid DATE OF SERVICE: HISTORY OF PRESENT ILLNESS: This 61-year-old lady is admitted to [facility] Unit on 09/12/2016 for continuous medical treatment and intensive rehabilitation, status post repeated falling, heavy alcohol abuse, with subarachnoid intracranial hemorrhage, not a candidate for surgical interference with unstable gait, dependent activity of daily and self-care and confused. She is admitted for continuous medical treatment and intensive rehabilitation. I saw this lady on initial consult on 08/29 and recommended intensive rehabilitation for 3-4 weeks, and today on 09/12/2016 upon re-evaluation, I would recommend intensive rehab, PT, OT, and speech for the coming 3 weeks or so, aiming to discharge on modified independence. She is at the present time alert and oriented. Vitals are as follows. Blood pressure 135/67, temperature 98.2, pulse 67, respirations 16. She is 5 feet 3 inches high and weighs 72.9 kg. ALLERGIES: SHE IS ALLERGIC TO PENICILLINS. PUT HER ON SEIZURE PRECAUTIONS, JUST BECAUSE OF HEAD INJURY. PAST MEDICAL HISTORY: At the present time, past history is as follows: 1. History of alcohol use and she is a lifelong smoker. 2. Has past history also of sick sinus syndrome, status post pacemaker [employer], which is MR compatible per daughter and also works for [employer]. 3. Hypertension. At the present time, she is able to follow instructions and work with PT. So far, she has been able to walk at best 50 feet with standby assistance and a gait belt with front-wheeled walker. She is full weightbearing at this present time, transfers [id number] with standby spa assistant manager and back stand-to- sit with standby spa assistant manager, also [id number] with standby assist. Needs much encouragement to increase distance of walking and the patient has PATIENT'S NAME: BECCA HOOD [facility] AGE: 61 Y [address] ROOM: [address] [place], [place] [address] LOCATION: [facility] ADMIT DATE: 09/12/2016 History & Physical DISCHARGE DATE: FAMILY PHYSICIAN: ZHANG MAGANA ATTENDING PHYSICIAN: Carri Kincaid mild decreased step length at the present time and during her gait training. MEDICATIONS: She is at the present time on the following medications: 1. Vancomycin 250 mg, 1 g vial sterile water 50 for C. diff for 4 days, stop on 09/17. 2. Vancomycin 250 per 5 mL for 4 days, start on 09/18 and at 9:00 a.m. 3. Vancomycin 250 for 4 more days, start on 09/25. 4. Vancomycin 125 and 50 mL vial sterile for 4 days and start on 10/02. 5. Colestid 2 g p.o. twice daily for diarrhea. 6. Benefiber 4 g one pack p.o. twice daily. 7. Mycostatin ointment direct topical 3 times daily to the rectal area t.i.d. 8. K-Tab 20 mEq p.o. daily. 9. Florastor 250 mg p.o. b.i.d. 10. Zoloft 50 mg p.o. in the morning. 11. Zocor 50 mg at bedtime. 12. Thiamine hydrochloride 100 mg p.o. daily. 13. Albuterol per 3 mL q.4 hours as needed . 14. NicoDerm patch daily, off at night. ASSESSMENT AND PLAN: At the present time, we will put on intensive PT, OT, Speech 3 hours per day, 15 hours per week for the coming 3 weeks or so, aiming to discharge on modified independence. We will send in a.m. for urinalysis with reflex microscopy and CBC without automated differential and prealbumin. We will keep on Dr. Hardin, hospitalist doctor, and neurologist to follow as necessary. All the above was explained to her. She verbalized understanding and agreement. CARRI KINCAID MD WMS/modl /[id number] D: [id number] T: [id number] HISTORY & PHYSICAL
--- NOTE | ~2016-09-12 | CON ---
PATIENT'S NAME: BECCA HOOD [facility] AGE: 61 Y [address] ROOM: [address] [place], [place] [address] LOCATION: [facility] ADMIT DATE: 09/12/2016 Consultation DISCHARGE DATE: 09/27/2016 FAMILY PHYSICIAN: ZHANG MAGANA ATTENDING PHYSICIAN: Milo Kincaid DATE OF CONSULTATION: 09/16/2016 REFERRING PHYSICIAN: Ryne Segura MD TEAM MEMBERS REPORTING: Dr. Kincaid; Belen Garcia, social staff worker; inpatient rehab nursing staff; Montserrat Augustine, PT; Bella Ward, PT; Yamileth Roberto, OT; Tiffany Ann, Speech Therapy; Jenifer Koehler, therapeutic rec; and sister Arielle Gonzalez, Pastoral Care. CURRENT STATUS: Becca is a 61-year-old woman admitted to our inpatient rehab unit on September 12, 2016, following a fall with a subarachnoid bleed. No surgery was needed for this. The patient had been detoxing from alcohol and had fallen prior to starting her detox. The patient's family thought that she was confused because she was detoxing, but had taken her in and had found out that she had fallen with a bleed. She has a history of sick sinus syndrome, status post pacemaker, hypertension, colitis with C. diff, history of acute kidney injury, metabolic acidosis, aortic stenosis, depression, urinary tract infection, and allergic rhinitis. GI consult was ordered for patient. The patient is incontinent of bladder at times. She continues to be having loose bowels. The patient is on a regular diet. She can transfer sit to supine and supine to sit independently; sit to stand and stand to sit, standby; bed to chair and chair to bed, standby. She can walk 200 feet with a front-wheeled walker at contact guard. They are doing high level balance tasks with her. Her goals for PT have been set for mod I. The patient can dress her upper and lower body at standby; grooming and bathing, standby, toilet and shower transfers, standby; toileting can be standby all the way to moderate assistance depending on if needing assistance with cleaning up after a bowel movement. She has met / long-term OT goals set at mod I. Comprehension is standby to mod I. Language and expression, mod I. Memory and problem solving, standby. DISCHARGE PLAN: The patient is receiving 3 hours of PT, OT, and speech Thursday through Thursday. The patient has daily rehab, nursing, and physiatry involvement as well as therapeutic rec services. The patient has shown functional improvement and is progressing. Please see her plan of care for specific goals. The patient's goal is to be able to discharge to an alcohol and drug rehab center. PATIENT'S NAME: BECCA HOOD [facility] AGE: 61 Y [address] ROOM: [place] [address] LOCATION: [facility] ADMIT DATE: 09/12/2016 Consultation DISCHARGE DATE: 09/27/2016 FAMILY PHYSICIAN: ZHANG MAGANA ATTENDING PHYSICIAN: Milo Kincaid BELEN GARCIA FOR MILO KINCAID MD TD/modl /[id number] d: 10/06/168 t: 10/20/16 1127, CONSULTATION REPORT
--- NOTE | ~2016-09-12 | DS ---
PATIENT'S NAME: BECCA HOOD [facility] AGE: 61 Y [address] ROOM: [address] [place] [address] LOCATION: [facility] ADMIT DATE: 09/12/2016 Discharge Summary DISCHARGE DATE: FAMILY PHYSICIAN: ZHANG MAGANA ATTENDING PHYSICIAN: Milo Kincaid This 61-year-old lady was admitted to Rehab Unit at [facility] on 09/12/2016, is discharged to home on 09/27/2016. 1. Unstable gait. 2. Dependent activities of daily self-care. 3. Status post intracranial hemorrhage, and at this time, doing well, stable, alert, oriented. Vitals today on 09/26/2016 were as follows, blood pressure 118/73, temperature 98.3, pulse 76, and respiratory rate 16. She can ambulate 150 x1 without assistive device on standby assistance. She went again 150 feet x1 with standby information services assistant with no assistive device again. She is at the present time able to follow instructions well and is at the present time on the following medications: 1. Cholestyramine 4 g packet p.o. b.i.d. 2. Colestid 2 g p.o. b.i.d. 3. Benefiber 1 packet p.o. twice daily. 4. Claritin 10 mg p.o. daily. 5. NicoDerm 7 mg transdermal for 7 days and then discontinue. 6. Protonix 40 mg p.o. daily. 7. K tablet 40 mEq p.o. daily. 8. Florastor 250 mg p.o. b.i.d. 9. Zoloft 50 mg p.o. in the morning. 10. Zocor 20 mg p.o. at night. 11. Vitamin B1 100 mg p.o. daily. 12. Tylenol 650 q.6 h., do not exceed acetaminophen 4 g q.24 h., give 36 of them. 13. Tums 1 to 2 as needed p.o. 14. Motrin 400 mg p.o. q.6 h. 30 days. 15. Melatonin 9 mg p.o. at bedtime. 16. Sudafed 60 mg p.o. q.8 h. p.r.n. as needed. FINAL DIAGNOSES: 1. Unstable gait. 2. Dependent activities of daily self-care. 3. Status post subarachnoid intracranial bleeding, not a surgical candidate, leading to unstable gait and dependent activities of daily self-care. PATIENT'S NAME: BECCA HOOD [facility] AGE: 61 Y [address] ROOM: [place] [address] LOCATION: [facility] ADMIT DATE: 09/12/2016 Discharge Summary DISCHARGE DATE: FAMILY PHYSICIAN: ZHANG MAGANA ATTENDING PHYSICIAN: Milo Kincaid 4. Heavy alcohol use. 5. Regular tobacco use. 6. Sick sinus syndrome, status post pacemaker. 7. Hypertension. 8. Colitis with C. diff, confirmed on 08/25/2016. 9. History of acute kidney injury. 10. Metabolic acidosis, now corrected and stable. 11. Aortic stenosis. 12. Urinary tract infection. 13. Depression. 14. Allergic rhinitis. She is not to drive and/or operate any mechanical device until she is reevaluated. She will go on outpatient PT, OT, Speech 2 times per week for the coming 4 weeks. Follow up with me in 4 weeks. Follow up with Dr. Hardin as he sees fit. Follow with Dr. Brian Rucker as he sees ray, cutting and boning supervisor. Please avoid alcohol use and avoid tobacco use. Medications as given per discharge summary and any renewal and/or change in medication per her family physician. All the above was explained to her in detail. She verbalized understanding and agreement with plan of care. MILO KINCAID MD WMS/modl /[id number] d: 09/27/16 0136 t: 09/27/16 0736, DISCHARGE SUMMARY
[~2016-09-12 09:45] MED LIST: AMLODIPINE BESYL5 MG PO; BYSTOLIC5 MG PO; FAMOTIDINE10 MG PO; MULTI VITAMIN1 EACH PO; THIAMINE HCL100 MG PO; TREXAN (REVIA)50 MG PO; TRINTELLIX 20 MG PO; ZESTRIL40 MG PO; ZOCOR20 MG PO; ZOFRAN4 MG PO
[2016-09-12 12:48] LABS: BILIRUBIN URINE NEGATIVE (NEGATIVE); BLOOD URINE 25 /UL (NEGATIVE); COLOR URINE YELLOW (YELLOW); GLUCOSE URINE NEGATIVE (NEGATIVE); KETONE URINE NEGATIVE (NEGATIVE); LEUKOCYTES URINE 25 /UL (NEGATIVE); NITRITE URINE NEGATIVE (NEGATIVE); PROTEIN URINE 15 mg/dL (NEGATIVE); TURBIDITY URINE CLEAR (CLEAR); UROBILINOGEN URINE NORMAL (NORMAL)
[2016-09-12 12:55] LABS: BACTERIA URINE FEW (NEGATIVE)
--- NOTE | 2016-09-12 13:34 | NUR ---
Significant Event: Patient was admitted to [facility] at 1000. Patient was admitted on August 25 with a head bleed. Also had a UTI and diagnosed with c-diff. Patient was cleared of c-diff on 09/11/16. Patient also has a history of alcoholism and it was reported that she will go to [facility] after [facility]. History of smoking. Lung sounds are corse on expiration. Patient is alert and oriented. Up with 1 assist. Has a rash in periarea with Nystatin cream ordered. Was cleared of c-diff yesterday. Stools today are semi-formed. Patient is taking oral Vanco. Blood pressure runs on the low side. Follow up:
--- NOTE | 2016-09-13 04:45 | NUR ---
Alert and oriented. Up with one assist and walker. Was cleared of c-diff yesterday. Had 5 small semi-formed stools with one incont episode this shift. VS are within normal limits. Denies pain and slept well.
[2016-09-13 06:03] LABS: BASOPHIL % 0.7 %; EOSINOPHIL # 0.3 K/uL (0.0-0.5); EOSINOPHIL % 7.3 %; HEMATOCRIT 35.4 % (33.0-46.0); HEMOGLOBIN 11.7 g/dL (10.0-15.0); IMMATURE GRANULOCYTE % 0.2 %; LYMPHOCYTE # 1.7 K/uL (0.8-4.0); LYMPHOCYTE % 40.1 %; MCH 34.9 pg (27.0-34.0); MCHC 33.1 gm/dL (32.0-36.5); MCV 105.7 fl (83.0-98.0); MONOCYTE # 0.4 K/uL (0.0-1.0); MONOCYTE % 9.7 %; MPV 10.7 fl (9.4-12.4); NEUTROPHIL # (ANC) 1.7 K/uL (1.8-7.8); NRBC % 0 /100WBC (0-0.00); PLATELET COUNT 306 K/uL (150-450); RBC 3.35 M/uL (3.50-5.50); RDW-CV 13.3 % (11.9-14.6); WBC 4.1 K/uL (4.0-11.0)
[2016-09-13 06:26] LABS: ALBUMIN 2.7 gm/dL (3.5-5.0); ALK PHOS 84 IU/L (33-138); ALT 25 IU/L (12-78); ANION GAP 13.6 (10.0-19.0); AST 32 IU/L (10-40); BLOOD UREA NITROGEN 8 mg/dL (6-24); CALCIUM 8.9 mg/dL (8.5-10.5); CHLORIDE 108 mMol/L (96-110); CO2 25 mMol/L (22-32); CREATININE 0.7 mg/dL (0.5-1.1); POTASSIUM 4.6 mMol/L (3.7-5.1); SODIUM 142 mMol/L (135-145); TOTAL BILIRUBIN 0.4 mg/dL (0.0-1.5)
--- NOTE | 2016-09-13 16:45 | NUR ---
Significant Event: Patient alert and oriented. Up with 1 assist. OT shower this morning. Stool was Type 6, mushy today. Education to patient and daughter about eating more solid foods. Tums given for heartburn at 1630. Follow up:
--- NOTE | 2016-09-14 04:07 | NUR ---
Significant Event: up with one assist and walker, moves slowly. Has had 6 small soft brown stools, with 7 voids. Skin to bilat groins discolored with dull red, ointment applied as ordered. Flat affect, denies pain. No c/o heartburn. Follow up: Monitor stools--was taken out of isolation d/t c-diff...double glove.
--- NOTE | 2016-09-14 12:28 | NUR ---
Significant Event: Patient alert and oriented. Up with 1 assist. Stools are mushy. Is incontinent of stool at times.. No complaints. Follow up:
--- NOTE | 2016-09-15 04:25 | NUR ---
Significant Event:Remains in contact isolation due to freq loose stools, has had 11 last night and vaires from small to mod, had large amt at one time. Denies stomach discomfort, c/o headache around 0115--gave tylenol and was effective. Finished infusing the liter of LR, saline locked/flushed at 0105. Pt does state she feels wiped out, did fall asleep at 0200 and slept well for 2-3 hrs. Oral intake 720, has had 6 voids. Follow up: Monitor stools, remains in isolation. Reminders to wash hands at sink when exiting bathroom/toilet.
--- NOTE | 2016-09-15 13:48 | NUR ---
Significant Event: Patient alert and orietned. Up with 1 assist. Continues to have frequent bowel movements. Stools are type 6, mushy. In contact isolation for c-diff. Saline lock intact. Doing therapy in room as patient is incontinent of stools at times. Follow up:
--- NOTE | 2016-09-16 05:28 | NUR ---
Alert and oriented. Up to bathroom 16 plus times with freq small incont stools. Is to be on person w walker standby assist, but pt is immediately taking herself bc she cannont wait due to urgency. Does occas need assistance with pericare. Put back in isolation for c-diff after this was d/c'd on the day she was admitted to [facility]. The only prn med taken was Mary Jackpot. Denies pain.
--- NOTE | 2016-09-16 11:00 | NUR ---
D: Therapeutic Recreation Initial Assessment on the 09/16/16. I: Patient seen for 2 units at 1100 to being initial evaluation. Pt has dx of Intracranial hemorrhage with hx of alcohol and tobacco use. R: Patient's current living situation and status: house in town Home entrance steps: 2 Living with: alone Spouses name: divorce # of children: 3 (1 close by) Driving: yes, family can provide transportation Ambulating: I Equipment: N/A Hand Dominance: Right Senior Manufacturing Engineer strength: N/T Eye sight: glasses Reading ability: N/T Hearing: no problem Speech: clear Cognition: impaired Comprehension: fair Following directions: yes Initiating: yes Eye contact: good Affect: flat COMMUNITY INVOLVEMENT: worked 30-35 weekly ([employer]), visit family/friends, attend grandchildren's events, hangout with friends LEISURE INTERESTS: watch TV, [employer], (past - yard work, walks, cattle, horse Patient is referred by medical staff for treatment and evaluation in the following areas: Community Skills, Functional Leisure Skills, Participation, Leisure Education/Behaviors, Family Education, Cognitive, Emotional. Information obtained: Interview, Chart Review, Observation, other. BARRIERS TO LEISURE: Social, Financial, Physical, Lifestyle (tobacco use a pack a day, alcohol "quit a bit last year",) Transportation, Leisure Skills. Patient determined to be: APPROPRIATE FOR THERAPEUTIC RECREATION ASSESSMENT. TREATMENT WILL INCLUDE: Community living skills training Functional leisure development Physical skills development Cognitive skills development Social skills development Leisure education Emotional/behavioral adaptation Family education Community resources/packet TARGET EQUIPMENT/INFORMATION: Parking Permit to assess need Community Resources Energy conservation in community setting Van/Service/Taxi Scrip Adapted Leisure Equipment Stress management/Relaxation techniques Functional car transfers Leisure Education Behaviors: Attitude, Awareness, Participation. Patient functional skills level and potential: Guarded, pt demonstrates fair mobility with concerns coping and depression. Patient oriented ot TR services on Rehab unit. Pt/family provided input into goals setting and plan of care. Pt's goal is to be independent with mobility and return to work. P: Target date set with personal goals established. Will continue with POC focusing on pt/family training and education. For additional information please see Nursing Data Base, PT, OT, CM, ST, initial assessments to [facility] and Interdisciplinary Assessments.
--- NOTE | 2016-09-16 14:35 | NUR ---
Significant Event: Pt up in room to BR multiple times with иван MARINELLI. Pt up on own at times when she is in a hurry to get to BR. Pt had 14 loose small BM today. Inc at times. Hand hygeine stressed with pt. Remains in isolation for C Diff. Aloe to coccyx. Pt on oral Vancomycin. Follow up: activity, safety, C Diff isolation
--- NOTE | 2016-09-17 03:39 | NUR ---
Significant Event: Patient is alert and oriented, VSS. Up one assit with GB/Walker. Has been having frequent loose stools and is up urgently to the bathroom sometimes cant wait and is up w/o help. Isolation for c diff. GI consult with new orders. PAVAN Kincaid has been dc'd and has started on Dificid BID and is on Colestid BID. C/O of headache given Tylenol at 1999. Follow up:
--- NOTE | 2016-09-17 12:18 | NUR ---
A-SCREENED D/T LOS; NEW ADMIT TO [facility] S/P HEAD BLEED; IN ISOLATION FOR C-DIFF HT: 63 IN. ADMIT WT (STANDING SCALE): 72.3 KG; CBW (STANDING SCALE) 72.9 KG BMI: 28.4 LABS: NA 142, K+ 4.6, GLU 131, BUN 8, FAST FOOD SHIFT LEAD 0.7, ALB 2.7 MEDS: VANCOMYCIN D/C; QUESTRAN, TUMS, VIT B-1, ZOLOFT, K-TAB, BENEFIBER, COLESTID, PRN BOWEL MEDS DIET RX: REGULAR. ENSURE ENLIVE BID, ENSURE PUDDING QD AND MAGIC CUP QD. PO INTAKE OF MEALS REF-100%; AVG IS 47%. LIKES THE SUPPLEMENTS. EST NUTR NEEDS: 5250-4910 KCALS (20-25 KCALS/KG) 73-80 GM PROTEIN (1.0-1.1 GM/KG) 1 ML FLUID/KCAL D-AT NUTRITION RISK W/INADEQUATE ORAL INTAKE R/T ALTERED APPETITE SECONDARY TO ALTERED GI FXN AEB INTAKE RECORDS, LOOSE STOOLS, C-DIFF I-CONTINUE W/CURRENT SUPPLEMENTS M/E-GOAL: PO INTAKE >/=50% BY NEXT F/U 1)F/U PO INTAKE, SUPPLEMENTS, WT, AND POC IN 5-6 DAYS 2)ASSIST NEEDED
[2016-09-17 15:56] LABS: ANION GAP 11.2 (10.0-19.0); BLOOD UREA NITROGEN 12 mg/dL (6-24); CALCIUM 8.9 mg/dL (8.5-10.5); CHLORIDE 109 mMol/L (96-110); CO2 23 mMol/L (22-32); CREATININE 0.7 mg/dL (0.5-1.1); MAGNESIUM 2.1 mg/dL (1.8-2.6); PHOSPHORUS 3.6 mg/dL (2.5-4.9); POTASSIUM 4.2 mMol/L (3.7-5.1); SODIUM 139 mMol/L (135-145)
--- NOTE | 2016-09-17 17:25 | NUR ---
Significant Event: Pt up in room ad joan, pt will call to let nurse know she is going to BR, at times needs help after toileting. Tums and tylenol given this afternoon. Pt remains in isolation for C Diff, pt had 15 loose small stools today. Pt did stated she felt better than yesterday. Pt cooperative with cares. Pt has numbness/tingling to rt fingers. Labs ordered Follow up: activity, isolation for C Diff, pain management, monitor skin integrity,
--- NOTE | 2016-09-18 03:35 | NUR ---
Significant Event:A/o. Up ad joan. Calls to let nurse know she is using the toilet. 9 Bm this shift. Isolation precautions for C-Diff. Tylenol at Hs for ache. Tums at midnight for "stomache issues". VSS on room air. SL to left hand. meds whole 1 at a time with water. Call light in reach. Needs help time to time cleaning after BM. Pleasant. Follow up:Isolation. skin integrity. Activites
--- NOTE | 2016-09-18 12:27 | NUR ---
D: TR progress note for 09/18/16. I: Pt seen for 2 units at 904 for cognitive task, pain/stress management and coping strategies. R: Pt seen for functional skills building working on sequencing, cognitive task, pain/stress management and coping skills using playing cards to promote independence in all areas. Pt transferred supine > sit SBA, sit > stand SBA ambulated with walker 6 feet to recliner SBA and transferred into chair SBA with good safety awareness. Pt completed card game Pyramid or "13" with min > occasional cues for game's strategy along with visual cue aide to assist with initial rules. Pt demonstrated good motor skills utilizing BUE, with good attention to task but fair > poor math skills. Education done on utilization of leisure to promote recovery with endurance, pain/stress management and for coping with increase free time. Pt transferred sit > stand from recliner SBA, ambulated back to with walker SBA and transferred into bed mod I. P: Will continue to see to address goals and plan of care.
--- NOTE | 2016-09-18 15:24 | NUR ---
Significant Event:Pt alert and orientated X 3, up ad joan, will call for assist if needed. Has not requested any Tylenol or Tums this shift, reports she is feeling better, stools still loose but sml, and 4 before 1300, which is a decrease. Remains in Contact isolation for C Diff. No change in assessment note charting. Pt has been pleasant and cooperative with plan of care. Follow up:Isolation for C Diff, pain management, monitor skin integrity.
--- NOTE | 2016-09-19 04:30 | NUR ---
Significant Event:A/O. Ad joan in room. Calls for assistance as needed and to assist nursing in tracking/charting stools. Contact Isolation for C Diff. Number of stools has decreased from yesterday. SL from left hand unable to flush; removed. meds whole with water one at a time. Patient requested Tylenol and Tums at bedtime, reported relief from headache and stomache irritation. Call light in reach. Pleasant. Follow up:Isolation. C-diff. Headaches. Monitor skin integrity.
--- NOTE | 2016-09-19 14:55 | NUR ---
Significant Event:a/o x 3. Ambulates ad joan in the room. Stools x 8, fluffy ragged edeges, no mucus, no "C-diff" odor. Tolerating Po fluids and nutrition. Tylenol and kpad for cheryl leg pain this AM before breakfas. TUMS for "burning" stomach this afternoon. Depend garment in use. Follow up: Plans to go home next week.
--- NOTE | 2016-09-20 04:13 | NUR ---
Significant Event: PATIENT IS ALERT AND ORIENTED X3. FLAT AFFECT. RESPONDS APPROPRIATELY. IN CONTACT PRECAUTIONS FOR C.DIFF. STOOLS APPEARED TO BE FORMED THIS SHIFT. TYLENOL ADMINISTERED AT 0240 FOR GENERALIZED ACHES. K-PAD PROVIDED WELL. UP AD EVITA IN ROOM. SHE DOES PUSH CALL LIGHT PRIOR TO GOING TO THE BATHROOM. Follow up:
--- NOTE | 2016-09-20 13:17 | NUR ---
Significant Event: PATIENT UP MOD I IN ROOM. CDIFF ISOLATION. ALERT AND ORIENTED X3. SOMETIMES NEEDS HELP CLEANING HERSELF AFTER BM. MULTIPLE MUSHY STOOLS TODAY. SOMETIMES INCONTINENT. VITALS STABLE ON ROOM AIR. TYLENOL FOR GENERALIZED PAIN PRN. KPAD FOR COMFORT. CALLS APPROPRIATELY. FEEDS SELF WITHOUT DIFFICULTY. Follow up:
--- NOTE | 2016-09-21 04:53 | NUR ---
Alert, oriented and cooperative with cares. Up modified assist in room. Very talkatitive this evening and satisfied with care she is recieving. Remains in Isolation for c-diff. Only 2 med mushy stools this shift. Takes Tylenol for hip and upper leg pain. Last given at 0150
--- NOTE | 2016-09-21 15:43 | NUR ---
Significant Event: Pt up in room with walker, ad joan. At times calls if needing help r/t inc. stool. Pt has had a fairly good day. Pt c/o headache and hip pain. Tylenol x 2 given last at 1311. Stools remains mushy. Pt pleasant and cooperative with cares. Pt continued to refused natalie oe Follow up: continue to monitor stools, C Diff precautions. pain management
--- NOTE | 2016-09-21 17:02 | NUR ---
Significant Event: Pt up in room mod I, with walker, jose, nik. well. Pt had 6 small mushy BM today. Pt continues to c/o headache. Tylenol x 3 last at 1705. Remains in C diff isolation. Pt cooperative with cares. Pericares done at times with inc. stools. Follow up: skin integrity, pain management
--- NOTE | 2016-09-22 04:50 | NUR ---
Alert and oriented. Up ad joan in room with walker. Cont with isolation for c-diff. 2 mushy small stools this shift. c/o bilateral hip and thigh pain which is a chronic problem for her. Takes Tylenol, last given at 0230. No incont this shift. A one time order recieved for Melatonin last evening from hospitalist on-call. Pt requesting a standing order for this. Note put on chart to
[2016-09-22 06:34] LABS: ALBUMIN 3.1 gm/dL (3.5-5.0); CREATININE 0.9 mg/dL (0.5-1.1); TOTAL BILIRUBIN 0.4 mg/dL (0.0-1.5); TOTAL PROTEIN 6.5 g/dL (6.0-8.4)
[2016-09-22 06:35] LABS: ANION GAP 13.6 (10.0-19.0); POTASSIUM 4.6 mMol/L (3.7-5.1)
--- NOTE | 2016-09-22 09:44 | NUR ---
[facility] Case Management Prefunctioning and Psycho-Social Initial Assessment for 09/12/16 and Case Conference Note for 09/16/16 D: Initial Lab Animal TechnicianMedical Educator and Case Conference Note. I: Input from: patient, family, Dr. Cast, Belen JUDGEW R: Reason for admission: fall with subarachnoid hemorrhage. Was recently detoxing from alcohol. Currently, has C-Diff. Admission Date to [facility]: 09/12/16 Admission Date to Hospital: 08/25/16 Prior level of functioning: patient was independent iwth adl's and household prior to fall. Prior living situation: one story house Financial resources/expectations: patient has [employer]. Insurance approved. Resources used: none. Resources available: HHC, outpatient therapy, SNF, [facility], [facility], DME. Family support available: none. Understands nature of health condition: yes Recognizes impact of health condition on lifestyle: yes Vocational/Educational: unemployed Behavior/Emotional needs: cues for safety. Watch for signs and symptoms of detox. Monitor for signs and symptoms of depression and anxiety. Legal concerns: none. Discharge goal: home with support. Assessment: Estefani is a 61 year old woman from [place], [place] admitted after a fall with head injury. Has good family support. Will follow and assit as needed. Team conference was held and plan is to d/c in approx. 7 days. Will follow and assist as needed. Orientation to the program and CM services completed with Estefani. Initial plan of care and estimated length of stay discussed, disclosure statement reviewed including patient assessment rights. P: Target date and individual goals established. Please see POC for details. For additional information please see Nursing Data Base, PT, OT, TR, ST, Initial assessments to [facility].
--- NOTE | 2016-09-22 11:43 | NUR ---
A-NUTRITION F/U STOOLING APPEARS TO BE IMPROVING. LABS: NA 140, K+ 4.6, GLU 118, BUN 13, FINANCIAL ANALYST ACCOUNTANT 0.9, ALB 3.1, PREALB 25.0. PREALB IMPROVED FROM PREVIOUS 18.0 MEDS: PROTONIX DIET RX: REGULAR W/ENSURE ENLIVE BID, ENSURE PUDDING QD, AND MAGIC CUP QD PO INTAKE HAS BEEN REF-100%; AVG IS 76%. PO INTAKE IMPROVED FROM 47% LAST F/U. GOAL WAS >/=50%; PT HAS EXCEEDED GOAL. D-NOT AT NUTRITION RISK W/IMPROVED PO INTAKE I-1)DECREASE ENSURE ENLIVE FROM BID TO QD 2)CONTINUE ENSURE PUDDING AND MAGIC CUP QD M/E-1)F/U PO INTAKE, WT, AND POC IN 7-10 DAYS 2)ASSIST NEEDED
--- NOTE | 2016-09-22 15:41 | NUR ---
Significant Event: Patient alert and oriented. Up ad joan in room. Patient reports 2 stools today. Continues to be in contact isolation for c-diff. Is incontinent of stools at times and also has the urge to go right away. Complained of headache this afternoon and took tylenol with some relief. Follow up:
--- NOTE | 2016-09-23 04:42 | NUR ---
Significant Event: Up ad joan in room, refuses bed alarm. Steady with gait when up and uses walker correctly. Has voided x 2, small soft/mushy stool at 1800. Po intake 400 ml. Ibuprofen given at 1900 for headache. Takes tylenol q 4 hrs for leg/knee discomfort, rates from 4-8 but reports med effective. Remains in contact isolation for c-diff. sys b/p 114. Anxious to be out of isolation for therapies and is tired of staying in her room. Follow up:Monitor stools so as to discontinue isolation. Use of prn tyl/ibuprofen for leg discomfort/headaches.
--- NOTE | 2016-09-23 16:17 | NUR ---
D: TR progress note for 09/23/16. I: Pt seen for 2 units at 1030 for cognitive thinking task, coping skills, fine motor skills and processing. R: Pt seen for functional skills building working on motor skills, sequencing, attention to task, and coping strategies doing new leisure word task "fillins" to increase independence in leisure activities and to promote recovery. Pt was mod I for sit > stand transfer from EOB, ambulated to recliner with walker SBA and transferred into chair mod I. Pt demonstrated no difficulty with processing information on game's strategy, independent for scanning and good attention to task with fair > good motor skills as writing legible. Education continued on use of leisure to promote recovery and for coping with examples given. P: Will continue to see to address goals and plan of care.
--- NOTE | 2016-09-23 16:39 | NUR ---
Significant Event:PATIENT ALERT AND ORIENTED THIS SHIFT. VSS. TRANSFER INDEPENDANTLY IN HER ROOM. DENIED PAIN THIS AM. DID REQUEST TYLENOL AND GIVEN 1414 THIS AFTERNOON. RESTS IN BED BETWEEN THERAPIES. HAS HAD NO INCONTINENCE TODAY. STILL HAVING SOME LOOSE STOOLS. NO OTHER COMPLAINTS. Follow up:
--- NOTE | 2016-09-24 03:12 | NUR ---
Significant Event: PATIENT IS ALERT AND ORIENED. UP AD EVITA IN HER ROOM. USES CALL LIGHT APPROPRIATELY. DENIES PAIN ALTHOUGH HAS REQUESTED TYLENOL FREQUESNTLY FOR GENERALIZED BODY ACHES. LAST DOSE AT 309. IBUPRPHEN AT 2029. IN PRECAUTIOS FOR C.DIFF. Y Follow up:
--- NOTE | 2016-09-24 14:59 | NUR ---
Significant Event: Alert and oriented x 3. Up ad joan in room. Tylenol given at 1445 for pain to bilat lower extremities. Cooperative with cares. Isolation for cdiff. Follow up:
--- NOTE | 2016-09-25 04:30 | NUR ---
Significant Event: Patient is alert and oriented, B/P was alittle low but retaken had improved. Up MOD I in room. Continues in isolation for C Diff. No stools tonight. Does own cares in room. Has been c/o of leg aches. Has been taking Tylenol alternated with Motrin. Last dose of Tylenol was 0100 and last Motrin was 0320. Has slept well. Follow up: DC Thursday.
--- NOTE | 2016-09-25 12:20 | NUR ---
D: TR progress note for 09/25/16. I: Pt seen for 2 units at 908 for community integration skills building, functional transfers and safety awareness. R: Pt seen for functional skills building working on mobility, safety, endurance and community integration skills in anticipation for discharge back into community with family. Pt taken around [facility] to simulate community environment. Pt transferred sit > stand from SBA, ambulated community distances 1000+ feet down hallways, around obstacles, on/off elevators, through 2 raised thresholds and on [facility] campus outdoors with no LOB but need for therapeutic rest breaks both seated and standing. Pt completed community transfer on/off low park bench x2 both transfers were mod I with good safety awareness. Education done on energy conservation and safety in community when dealing with obstacles such as throw rugs and uneven surfaces. P: Will discharge home tomorrow, 09/25/16.
--- NOTE | 2016-09-25 15:48 | NUR ---
PT is alert and oriented to peraon, place and time. Pt has been pleasant with staff and cares. Pt is modified independent in room. Pt has not called unless she needs pain medication or had a BM. She did have a large soft formed BM this am. PT had taken herself to and from the bathroom to void. Pt did work with therapy. Pt's Daughter called [facility] to ask them to come and do a device check on her pacer. Order to have her pacer checked here while she is in the hospital. Pt is not going to [facility] [place].
--- NOTE | 2016-09-26 04:12 | NUR ---
Significant Event: PATIENT IS ALERT AND ORIENTED, VSS. UP MOD I IN ROOM. HAS BEEN C/O OF LEG PAIN TAKES TYLENOL ALTERNATED WITH MOTRIN. CONTINUES TO HAVE SOME SMALL LOOSE STOOLS. [facility] IS TO BE HERE TODAY TO DO A PACER CHECK. SHE WILL BE DC'D THURSDAY OR THURSDAY AND WILL NEED A BOX FOR HER PACER THE REP FOR CHANTAL HAS BEEN NOTIFIED NUMBER TO CALL IF NEEDED IS . WILL NOT BE DISCHARGED TO [facility]. Follow up: PACER CHECK. MAKE SURE [facility] WILL BE BRING AN BOX FOR THE PACER.
--- NOTE | 2016-09-26 12:38 | NUR ---
D: Tracer Powder Blender Team Conference Follow up for 09/23/16 I: Input from patient/family R: Met with: patient, family, Belen Moreland BIAS CUTTING MACHINE OPERATOR VERTICAL Discussed rehab plan, patient progress, discharge plan and estimated length of stay of d/c planned soon. Patient/Family Preference: Patient is in agreement. Family is in agreement. Anticipated discharge disposition: Family and patient are hoping that patient can d/c to an alcohol and drug rehab facility. Education completed: Education was completed with patient and family regarding length of stay, progress in therapy and d/c plan. Assessment/Recommendation: Team recommends d/c soon. P: Case Coordination: Estefani is a 61 year old woman from [place], [place] admitted after a fall with head bleed. She has good family support. Patient has been working on detoxing from alcohol. Working on trying to get patient into [facility]. Will follow and assist as needed.
--- NOTE | 2016-09-26 16:28 | NUR ---
Significant Event:PATIENT ALERT AND ORIENTED THIS SHIFT. VSS. TRANSFERS INDEPENDANTLY. WORKS WITH THERAPY AND TOLERATING WELL. CONTINUES TO HAVE OCCASIONAL LOOSE STOOLS. COMPLAINTS OF LEG CRAMPS AND WONDERS IF IT IS DUE TO HER LOVENOX. TOLD PATIENT I WOULD CHECK INTO THE SIDE EFFECTS. GIVEN TYLENOL AND IBUPROFEN AT 1254 THIS AFTERNOON. NO OTHER COMPLAINTS. Follow up:
--- NOTE | 2016-09-27 04:49 | NUR ---
Significant Event:A/O. Ad joan with walker in room and hallway. Contact isolation for C-diff. C/o pain from hips to knees, tramadol prescribed. VSS on room air. A febrile. Meds whole with water. Up to bathroom X2. 2 scant BM soft. Call light in reach. Follow up:Dismiss today-home with daughter. Pain management.
[2016-09-27] MEDS ORDERED: QUESTRAN PACKET4 GM PO (06:21)
[2016-09-27] MEDS ORDERED: COLESTID1 GM PO (06:22)
[2016-09-27] MEDS ORDERED: BENEFIBER)(NUTR1 PKT PO (06:22)
[2016-09-27] MEDS ORDERED: CLARITIN10 MG PO (06:23)
[2016-09-27] MEDS ORDERED: NICODERM / HABIT7 MG TRANS (06:23)
[2016-09-27] MEDS ORDERED: K-TAB ER20 MEQ PO (06:24)
[2016-09-27] MEDS ORDERED: PROTONIX40 MG PO (06:24)
[2016-09-27] MEDS ORDERED: ZOLOFT50 MG PO (06:25)
[2016-09-27] MEDS ORDERED: FLORASTOR250 MG PO (06:25)
[2016-09-27] MEDS ORDERED: TYLENOL325 MG PO (06:26)
[2016-09-27] MEDS ORDERED: THIAMINE HCL100 MG PO (06:26)
[2016-09-27] MEDS ORDERED: TUMS REGULAR ST1 TAB PO (06:27)
[2016-09-27] MEDS ORDERED: MELATIN3 MG PO (06:29)
[2016-09-27] MEDS ORDERED: SUDAFED30 MG PO (06:29)
[2016-09-27] MEDS ORDERED: ULTRAM50 MG PO (07:14)
--- NOTE | 2016-09-27 13:47 | NUR ---
PATIENT DISCHARGED FROM [facility] TO DAUGHTERS CARE AT DAUGHTER'S HOME. PATIENT STILL IN ISOLATION FOR CDIFF BUT HAD FORMED STOOL LAST NIGHT AND TODAY. TYLENOL WAS GIVEN THIS AM FOR LEG DISCOMFORT. VITALS STABLE ON ROOM AIR. PATIENT ALERT AND ORIENTED X3. UP AD EVITA IN ROOM. CONTINENT OF BOWEL AND BLADDER. NICOTINE PATCH ON. DAUGHTER AND PATIENT VOICED THEIR UNDERSTANDING OF THE KRAMES AND PRESCRIPTION SHEETS WELL INSTRUCTIONS FOR MAKING FOLLOW UP APPOINTMENTS.
--- NOTE | 2016-10-06 11:01 | NUR ---
D: Flexographic Press Helper Discharge Note for 09/27/16 I: Input from Patient/Family R: Patient to discharge On: 09/27/16 With: daughter Disposition: home with outpatient therapy. Resource Discussed: discussed options. Therapy Recommendation: see therapy notes. Equipment Recommendations: see therapy notes. Financial Resources Used: patient has [employer]. Other referrals: Referral to [facility]-will not take yet--feel patient has too much medically going on. Patient/Family education completed: prior to d/c. Patient/Family preference: in agreement. Plan of Care and Goal summary: met all goals. P: Complete follow up within one week: call patient to see how she is doing.
== END 2016-09-27 13:51 | disposition disaster alternative care site (69) | DRG 91 ==
LOC: GIRP 09:45
PROVIDERS: ADMIT Physical Medicine & Rehabilitation
DX: R26.81 Unsteadiness on feet (principal); G93.41 Metabolic encephalopathy; A04.7 Enterocolitis due to Clostridium difficile; I49.5 Sick sinus syndrome; E87.2 Acidosis; N39.0 Urinary tract infection, site not specified; Z74.1 Need for assistance with personal care; I69.00 Unspecified sequelae of nontraumatic subarachnoid hemorrhage; F10.20 Alcohol dependence, uncomplicated; F17.200 Nicotine dependence, unspecified, uncomplicated; Z95.0 Presence of cardiac pacemaker; I10 Essential (primary) hypertension; I35.0 Nonrheumatic aortic (valve) stenosis; F32.9 Major depressive disorder, single episode, unspecified; B96.20 Unspecified Escherichia coli [E. coli] as the cause of diseases classified elsewhere
CPT/HCPCS: J1650; J3370; J7120